=== PATIENT | male | born 1965 | race American Indian/Alaskan Native ===

== ENCOUNTER 2021-08-08 10:38 | Emergency (ER) | payer SELFPAY ==
[~2021-08-08 10:38] MED LIST: ETOMIDATE 20 MG/10 ML INJ IV ONE; ROCURONIUM 50 MG/5 ML INJ IV ONE
[2021-08-08] MEDS ORDERED: MINERAL OIL/PETROLATUM, WHITE OPHTH OINT 3.5 GM OU PRN (12:42)
[2021-08-08] MEDS ORDERED: MIDAZOLAM 2 MG/2 ML INJ IV PRN (12:42)
[2021-08-08] MEDS ORDERED: LIP THERAPY VASELINE TP PRN (12:42)
[2021-08-08] MEDS ORDERED: SODIUM CHLORIDE 0.9% 1000 ML 1,000 ML IV ONE ×3 (12:42→21:48)
--- NOTE | 2021-08-08 13:33 | Emergency Department Report ---
HPI - General Time Seen by Provider: 08/08/21 12:41 - HPI HPI: 56-year-old -[place] male presents to the emergency department via EMS from home with complaint of altered mental status. Initial call for EMS was a "sick call" and the patient was relatively unresponsive when they first arrived. Upon arrival to the emergency department the patient was more awake and alert, answering questions by nodding his head, had spontaneous eye opening, and EMS felt it was safe enough for the oral pharyngeal airway to be removed. Initially he was hypertensive in route. He has a known history of hypertension. The patient's told EMS that the patient had some type of fall over the weekend with a head injury and he was evaluated at [facility] on Saturday and discharged home from the emergency department. She told EMS that since that time he has been "like this." While waiting for a room assignment in the emergency department, the patient once again became unresponsive. He was moved into room #24. There was occasional spontaneous eye opening but this was rare. The patient would respond minimally to painful stimuli. Otherwise he was unresponsive with snoring respirations and his oxygen saturation was seen going down to 80% on room air. The patient was placed on a nonrebreather with some mild improvement. However, with a low GCS and his respiratory status, the patient was intubated. The patient has never been at this facility previously. I attempted to find the patient's in our waiting room without success. There is no phone number listed at this time for collateral information. I did later speak to the patient's multiple times at bedside. She said that he first had some vertigo-like symptoms and had an unresponsive episode last Saturday and that is what prompted them to go to the [facility] emergency department. She thinks that he did have a scan of his head at that time and had an emergency department work-up but was discharged home with some prescriptions including meclizine. She says that he never returned to a normal mental status saying that he has been "out of it" over the past 2 days. She say s that he has been sleeping a lot, and has had a few episodes in which he stares off and only answers questions with nodding his head. This morning it appears that the patient rolled out of bed and hit his head on the floor. He was unresponsive which is what prompted her to call for EMS. ED Review of Systems ROS: Stated complaint: AMS Other details as noted in HPI Comment: Unobtainable due to pts medical conditions Physical Exam - Physical Exam Vital Signs: Vital Signs 08/08/21 12:58 Pulse Rate 126 H Blood Pressure 203/128 O2 Sat by Pulse 90 Oximetry Physical Exam: GENERAL: The patient is ill-appearing and unresponsive. HENT: Normocephalic. Atraumatic. Patient has moist mucous membranes. EYES: Extraocular motions are intact. Pupils equal, constricted, and sluggish and reactive to light bilaterally. NECK: Supple. Trachea is midline. CHEST/LUNGS: Coarse breath sounds and rales. Patient has bradypnea with snoring respirations. HEART/CARDIOVASCULAR: Regular. There is mild to moderate tachycardia. There is no murmur. ABDOMEN: Abdomen is soft, nontender. Patient has normal bowel sounds. SKIN: Skin is warm and dry. NEURO: Patient is unresponsive other than very mild flexion to painful stimuli. No gag reflex. Nonverbal. Not following commands. MUSCULOSKELETAL: There is no obvious deformity. There is no limitation range of motion. ED Course Vital Signs 08/08/21 12:58 Pulse Rate 126 H Blood Pressure 203/128 O2 Sat by Pulse 90 Oximetry - Reevaluation(s) Reevaluation #1: 08/08/21 17:59 I had a long conversation with the patient's and his family regarding his current condition, lab results, and most significantly at the CT head results. They are aware the patient may need transfer to another facility but that there are no excepting facilities in [place] thus far, and even in [place]. I later spoke with the patient's and discussed my desire to obtain a CT angiography of the head and neck to further evaluate if there is thrombosis versus mass versus other. She understands that he has renal insufficiency with a GFR of 25 but has given her permission to proceed with the CT angiography studies after risks/benefits were discussed. - Consultations Consultation #1: 08/08/21 16:[address] Galvan, stroke attending at [facility], and he took a look at the patient's CT of the head without contrast after listening to his presentation and ED course. He agrees that the patient appears to require neurosurgical consultation but says that the patient is currently outside of the window for tPA or thrombectomy. He says that they are full for neuro ICU at both [facility] and [facility]. 08/08/21 16:35 All [facility] facilities are full. [facility] is in ICU diversion. [facility] in [place] is on medical diversion. 08/08/21 17:12 Attempted transfer to [facility], [facility], [facility], [facility] in [place], and all these facilities are full and not accepting transfers at this time. 08/08/21 17:58 [facility] and [facility] are both on ICU diversion and cannot accept this patient at this time. 08/08/21 21:17 Spoke with the [facility] transfer line and as of right now [facility] in [place], [facility] in [place] do not have any ICU capability but we should "try again later." The other local [facility] facilities are on diversion. - Intubation Time Out Performed: Yes Sedative: Etomidate Mg Given: 20 Paralytic: Rocuronium Mg Given: 100 Laryngoscope: other ([place] scope) Size: 4 ET Tube Size: 7.5 Tube Secured Depth (cm): 24 Tube Secured Location: teeth Tube Placement Confirmation: visualized tube passing t, equal breath sounds bilat, no breath sounds over epi, confirmation by capnometr Patient Tolerated Procedure: well Intubation Complications: none ED Medical Decision Making - Lab Data Result diagrams: 08/08/21 13:16 08/08/21 13:16 Lab Results 08/08/21 08/08/21 08/08/21 Range/Units 13:16 13:16 13:16 WBC 11.7 H (4.5-11.0) K/mm3 RBC 6.97 H (3.65-5.03) M/mm3 Hgb 18.9 H (11.8-15.2) gm/dl Hct 58.9 H (35.5-45.6) % MCV 85 (84-94) fl MCH 27 L (28-32) pg MCHC 32 (32-34) % RDW 14.7 (13.2-15.2) % Plt Count 268 (140-440) K/mm3 Lymph % (Auto) 12.6 L (13.4-35.0) % Gibson % (Auto) 10.3 H (0.0-7.3) % Eos % (Auto) 0.0 (0.0-4.3) % Baso % (Auto) 0.1 (0.0-1.8) % Lymph # (Auto) 1.5 (1.2-5.4) K/mm3 Gibson # (Auto) 1.2 H (0.0-0.8) K/mm3 Eos # (Auto) 0.0 (0.0-0.4) K/mm3 Baso # (Auto) 0.0 (0.0-0.1) K/mm3 Seg Neutrophils % 77.0 H (40.0-70.0) % Seg Neutrophils # 9.0 H (1.8-7.7) K/mm3 PT 13.5 (12.2-14.9) Sec. INR 0.93 (0.87-1.13) APTT 27.7 (24.2-36.6) Sec. ABG pH (7.350-7.450) pH Units ABG pCO2 mm Hg ABG pO2 (80.0-90.0) mm Hg ABG HCO3 (20.0-26.0) mmol/L ABG O2 Saturation (95.0-99.0) % ABG O2 Content (0.0-44) ABG Base Excess (-2.0-3.0) mmol/L ABG Hemoglobin (14.0-18.0) gm/dl ABG Carboxyhemoglobin (0.0-5.0) % ABG Methemoglobin (0.0-1.5) % Oxyhemoglobin (95.0-99.0) % FiO2 % Sodium 142 (137-145) mmol/L Potassium 2.6 L* (3.6-5.0) mmol/L Chloride 93.2 L (98-107) mmol/L Carbon Dioxide 30 (22-30) mmol/L Anion Gap 21 mmol/L BUN 36 H (9-20) mg/dL Creatinine 2.7 H (0.8-1.3) mg/dL Estimated GFR 25 ml/min BUN/Creatinine Ratio 13 % Glucose 129 H (75-100) mg/dL Lactic Acid (0.7-2.0) mmol/L Calcium 10.2 (8.4-10.2) mg/dL Magnesium (1.7-2.3) mg/dL Total Bilirubin 0.90 (0.1-1.2) mg/dL AST 27 (5-40) units/L ALT 27 (7-56) units/L Alkaline Phosphatase 108 (35-129) units/L Ammonia (25-60) umol/L Troponin T 0.019 (0.00-0.029) ng/mL NT-Pro-B Natriuret Pep (0-900) pg/mL Total Protein 9.4 H (6.3-8.2) g/dL Albumin 4.5 (3.9-5) g/dL Albumin/Globulin Ratio 0.9 % TSH (0.270-4.200) mlU/mL Urine Color (Yellow) Urine Turbidity (Clear) Urine pH (5.0-7.0) Ur Specific [place] (1.003-1.030) Urine Protein (Negative) mg/dL Urine Glucose (UA) (Negative) mg/dL Urine Ketones (Negative) mg/dL Urine Blood (Negative) Urine Nitrite (Negative) Urine Bilirubin (Negative) Urine Urobilinogen (<2.0) mg/dL Ur Leukocyte Esterase (Negative) Urine WBC (Auto) (0.0-6.0) /HPF Urine RBC (Auto) (0.0-6.0) /HPF Urine Mucus /HPF Salicylates (2.8-20.0) mg/dL Urine Opiates Screen Urine Methadone Screen Acetaminophen (10.0-30.0) ug/mL Ur Barbiturates Screen Ur Phencyclidine Scrn Ur Amphetamines Screen U Benzodiazepines Scrn Urine Cocaine Screen U Marijuana (THC) Screen Drugs of Abuse Note Plasma/Serum Alcohol (0-0.07) % 08/08/21 08/08/21 08/08/21 Range/Units 13:16 13:16 13:16 WBC (4.5-11.0) K/mm3 RBC (3.65-5.03) M/mm3 Hgb (11.8-15.2) gm/dl Hct (35.5-45.6) % MCV (84-94) fl MCH (28-32) pg MCHC (32-34) % RDW (13.2-15.2) % Plt Count (140-440) K/mm3 Lymph % (Auto) (13.4-35.0) % Gibson % (Auto) (0.0-7.3) % Eos % (Auto) (0.0-4.3) % Baso % (Auto) (0.0-1.8) % Lymph # (Auto) (1.2-5.4) K/mm3 Gibson # (Auto) (0.0-0.8) K/mm3 Eos # (Auto) (0.0-0.4) K/mm3 Baso # (Auto) (0.0-0.1) K/mm3 Seg Neutrophils % (40.0-70.0) % Seg Neutrophils # (1.8-7.7) K/mm3 PT (12.2-14.9) Sec. INR (0.87-1.13) APTT (24.2-36.6) Sec. ABG pH (7.350-7.450) pH Units ABG pCO2 mm Hg ABG pO2 (80.0-90.0) mm Hg ABG HCO3 (20.0-26.0) mmol/L ABG O2 Saturation (95.0-99.0) % ABG O2 Content (0.0-44) ABG Base Excess (-2.0-3.0) mmol/L ABG Hemoglobin (14.0-18.0) gm/dl ABG Carboxyhemoglobin (0.0-5.0) % ABG Methemoglobin (0.0-1.5) % Oxyhemoglobin (95.0-99.0) % FiO2 % Sodium (137-145) mmol/L Potassium (3.6-5.0) mmol/L Chloride (98-107) mmol/L Carbon Dioxide (22-30) mmol/L Anion Gap mmol/L BUN (9-20) mg/dL Creatinine (0.8-1.3) mg/dL Estimated GFR ml/min BUN/Creatinine Ratio % Glucose (75-100) mg/dL Lactic Acid 3.30 H* (0.7-2.0) mmol/L Calcium (8.4-10.2) mg/dL Magnesium (1.7-2.3) mg/dL Total Bilirubin (0.1-1.2) mg/dL AST (5-40) units/L ALT (7-56) units/L Alkaline Phosphatase (35-129) units/L Ammonia 24.0 L (25-60) umol/L Troponin T (0.00-0.029) ng/mL NT-Pro-B Natriuret Pep (0-900) pg/mL Total Protein (6.3-8.2) g/dL Albumin (3.9-5) g/dL Albumin/Globulin Ratio % TSH 1.750 (0.270-4.200) mlU/mL Urine Color (Yellow) Urine Turbidity (Clear) Urine pH (5.0-7.0) Ur Specific [place] (1.003-1.030) Urine Protein (Negative) mg/dL Urine Glucose (UA) (Negative) mg/dL Urine Ketones (Negative) mg/dL Urine Blood (Negative) Urine Nitrite (Negative) Urine Bilirubin (Negative) Urine Urobilinogen (<2.0) mg/dL Ur Leukocyte Esterase (Negative) Urine WBC (Auto) (0.0-6.0) /HPF Urine RBC (Auto) (0.0-6.0) /HPF Urine Mucus /HPF Salicylates (2.8-20.0) mg/dL Urine Opiates Screen Urine Methadone Screen Acetaminophen (10.0-30.0) ug/mL Ur Barbiturates Screen Ur Phencyclidine Scrn Ur Amphetamines Screen U Benzodiazepines Scrn Urine Cocaine Screen U Marijuana (THC) Screen Drugs of Abuse Note Plasma/Serum Alcohol (0-0.07) % 08/08/21 08/08/21 08/08/21 Range/Units 13:16 13:16 13:16 WBC (4.5-11.0) K/mm3 RBC (3.65-5.03) M/mm3 Hgb (11.8-15.2) gm/dl Hct (35.5-45.6) % MCV (84-94) fl MCH (28-32) pg MCHC (32-34) % RDW (13.2-15.2) % Plt Count (140-440) K/mm3 Lymph % (Auto) (13.4-35.0) % Gibson % (Auto) (0.0-7.3) % Eos % (Auto) (0.0-4.3) % Baso % (Auto) (0.0-1.8) % Lymph # (Auto) (1.2-5.4) K/mm3 Gibson # (Auto) (0.0-0.8) K/mm3 Eos # (Auto) (0.0-0.4) K/mm3 Baso # (Auto) (0.0-0.1) K/mm3 Seg Neutrophils % (40.0-70.0) % Seg Neutrophils # (1.8-7.7) K/mm3 PT (12.2-14.9) Sec. INR (0.87-1.13) APTT (24.2-36.6) Sec. ABG pH (7.350-7.450) pH Units ABG pCO2 mm Hg ABG pO2 (80.0-90.0) mm Hg ABG HCO3 (20.0-26.0) mmol/L ABG O2 Saturation (95.0-99.0) % ABG O2 Content (0.0-44) ABG Base Excess (-2.0-3.0) mmol/L ABG Hemoglobin (14.0-18.0) gm/dl ABG Carboxyhemoglobin (0.0-5.0) % ABG Methemoglobin (0.0-1.5) % Oxyhemoglobin (95.0-99.0) % FiO2 % Sodium (137-145) mmol/L Potassium (3.6-5.0) mmol/L Chloride (98-107) mmol/L Carbon Dioxide (22-30) mmol/L Anion Gap mmol/L BUN (9-20) mg/dL Creatinine (0.8-1.3) mg/dL Estimated GFR ml/min BUN/Creatinine Ratio % Glucose (75-100) mg/dL Lactic Acid (0.7-2.0) mmol/L Calcium (8.4-10.2) mg/dL Magnesium (1.7-2.3) mg/dL Total Bilirubin (0.1-1.2) mg/dL AST (5-40) units/L ALT (7-56) units/L Alkaline Phosphatase (35-129) units/L Ammonia (25-60) umol/L Troponin T (0.00-0.029) ng/mL NT-Pro-B Natriuret Pep (0-900) pg/mL Total Protein (6.3-8.2) g/dL Albumin (3.9-5) g/dL Albumin/Globulin Ratio % TSH (0.270-4.200) mlU/mL Urine Color (Yellow) Urine Turbidity (Clear) Urine pH (5.0-7.0) Ur Specific [place] (1.003-1.030) Urine Protein (Negative) mg/dL Urine Glucose (UA) (Negative) mg/dL Urine Ketones (Negative) mg/dL Urine Blood (Negative) Urine Nitrite (Negative) Urine Bilirubin (Negative) Urine Urobilinogen (<2.0) mg/dL Ur Leukocyte Esterase (Negative) Urine WBC (Auto) (0.0-6.0) /HPF Urine RBC (Auto) (0.0-6.0) /HPF Urine Mucus /HPF Salicylates < 0.3 L (2.8-20.0) mg/dL Urine Opiates Screen Urine Methadone Screen Acetaminophen 5.0 L (10.0-30.0) ug/mL Ur Barbiturates Screen Ur Phencyclidine Scrn Ur Amphetamines Screen U Benzodiazepines Scrn Urine Cocaine Screen U Marijuana (THC) Screen Drugs of Abuse Note Plasma/Serum Alcohol < 0.01 (0-0.07) % 08/08/21 08/08/21 08/08/21 Range/Units 13:35 13:36 13:36 WBC (4.5-11.0) K/mm3 RBC (3.65-5.03) M/mm3 Hgb (11.8-15.2) gm/dl Hct (35.5-45.6) % MCV (84-94) fl MCH (28-32) pg MCHC (32-34) % RDW (13.2-15.2) % Plt Count (140-440) K/mm3 Lymph % (Auto) (13.4-35.0) % Gibson % (Auto) (0.0-7.3) % Eos % (Auto) (0.0-4.3) % Baso % (Auto) (0.0-1.8) % Lymph # (Auto) (1.2-5.4) K/mm3 Gibson # (Auto) (0.0-0.8) K/mm3 Eos # (Auto) (0.0-0.4) K/mm3 Baso # (Auto) (0.0-0.1) K/mm3 Seg Neutrophils % (40.0-70.0) % Seg Neutrophils # (1.8-7.7) K/mm3 PT (12.2-14.9) Sec. INR (0.87-1.13) APTT (24.2-36.6) Sec. ABG pH 7.396 (7.350-7.450) pH Units ABG pCO2 56.7 mm Hg ABG pO2 93.7 H (80.0-90.0) mm Hg ABG HCO3 34.0 H (20.0-26.0) mmol/L ABG O2 Saturation 96.9 (95.0-99.0) % ABG O2 Content 23.8 (0.0-44) ABG Base Excess 6.8 H (-2.0-3.0) mmol/L ABG Hemoglobin 17.8 (14.0-18.0) gm/dl ABG Carboxyhemoglobin 1.3 (0.0-5.0) % ABG Methemoglobin 0.6 (0.0-1.5) % Oxyhemoglobin 95.0 (95.0-99.0) % FiO2 100 % Sodium (137-145) mmol/L Potassium (3.6-5.0) mmol/L Chloride (98-107) mmol/L Carbon Dioxide (22-30) mmol/L Anion Gap mmol/L BUN (9-20) mg/dL Creatinine (0.8-1.3) mg/dL Estimated GFR ml/min BUN/Creatinine Ratio % Glucose (75-100) mg/dL Lactic Acid (0.7-2.0) mmol/L Calcium (8.4-10.2) mg/dL Magnesium 2.40 H (1.7-2.3) mg/dL Total Bilirubin (0.1-1.2) mg/dL AST (5-40) units/L ALT (7-56) units/L Alkaline Phosphatase (35-129) units/L Ammonia (25-60) umol/L Troponin T (0.00-0.029) ng/mL NT-Pro-B Natriuret Pep 619.3 (0-900) pg/mL Total Protein (6.3-8.2) g/dL Albumin (3.9-5) g/dL Albumin/Globulin Ratio % TSH (0.270-4.200) mlU/mL Urine Color (Yellow) Urine Turbidity (Clear) Urine pH (5.0-7.0) Ur Specific [place] (1.003-1.030) Urine Protein (Negative) mg/dL Urine Glucose (UA) (Negative) mg/dL Urine Ketones (Negative) mg/dL Urine Blood (Negative) Urine Nitrite (Negative) Urine Bilirubin (Negative) Urine Urobilinogen (<2.0) mg/dL Ur Leukocyte Esterase (Negative) Urine WBC (Auto) (0.0-6.0) /HPF Urine RBC (Auto) (0.0-6.0) /HPF Urine Mucus /HPF Salicylates (2.8-20.0) mg/dL Urine Opiates Screen Urine Methadone Screen Acetaminophen (10.0-30.0) ug/mL Ur Barbiturates Screen Ur Phencyclidine Scrn Ur Amphetamines Screen U Benzodiazepines Scrn Urine Cocaine Screen U Marijuana (THC) Screen Drugs of Abuse Note Plasma/Serum Alcohol (0-0.07) % 08/08/21 08/08/21 Range/Units Unknown Unknown WBC (4.5-11.0) K/mm3 RBC (3.65-5.03) M/mm3 Hgb (11.8-15.2) gm/dl Hct (35.5-45.6) % MCV (84-94) fl MCH (28-32) pg MCHC (32-34) % RDW (13.2-15.2) % Plt Count (140-440) K/mm3 Lymph % (Auto) (13.4-35.0) % Gibson % (Auto) (0.0-7.3) % Eos % (Auto) (0.0-4.3) % Baso % (Auto) (0.0-1.8) % Lymph # (Auto) (1.2-5.4) K/mm3 Gibson # (Auto) (0.0-0.8) K/mm3 Eos # (Auto) (0.0-0.4) K/mm3 Baso # (Auto) (0.0-0.1) K/mm3 Seg Neutrophils % (40.0-70.0) % Seg Neutrophils # (1.8-7.7) K/mm3 PT (12.2-14.9) Sec. INR (0.87-1.13) APTT (24.2-36.6) Sec. ABG pH (7.350-7.450) pH Units ABG pCO2 mm Hg ABG pO2 (80.0-90.0) mm Hg ABG HCO3 (20.0-26.0) mmol/L ABG O2 Saturation (95.0-99.0) % ABG O2 Content (0.0-44) ABG Base Excess (-2.0-3.0) mmol/L ABG Hemoglobin (14.0-18.0) gm/dl ABG Carboxyhemoglobin (0.0-5.0) % ABG Methemoglobin (0.0-1.5) % Oxyhemoglobin (95.0-99.0) % FiO2 % Sodium (137-145) mmol/L Potassium (3.6-5.0) mmol/L Chloride (98-107) mmol/L Carbon Dioxide (22-30) mmol/L Anion Gap mmol/L BUN (9-20) mg/dL Creatinine (0.8-1.3) mg/dL Estimated GFR ml/min BUN/Creatinine Ratio % Glucose (75-100) mg/dL Lactic Acid (0.7-2.0) mmol/L Calcium (8.4-10.2) mg/dL Magnesium (1.7-2.3) mg/dL Total Bilirubin (0.1-1.2) mg/dL AST (5-40) units/L ALT (7-56) units/L Alkaline Phosphatase (35-129) units/L Ammonia (25-60) umol/L Troponin T (0.00-0.029) ng/mL NT-Pro-B Natriuret Pep (0-900) pg/mL Total Protein (6.3-8.2) g/dL Albumin (3.9-5) g/dL Albumin/Globulin Ratio % TSH (0.270-4.200) mlU/mL Urine Color Yellow (Yellow) Urine Turbidity Slightly-cloudy (Clear) Urine pH 5.0 (5.0-7.0) Ur Specific [place] 1.023 (1.003-1.030) Urine Protein >500 (Negative) mg/dL Urine Glucose (UA) Neg (Negative) mg/dL Urine Ketones Neg (Negative) mg/dL Urine Blood Mod (Negative) Urine Nitrite Neg (Negative) Urine Bilirubin Neg (Negative) Urine Urobilinogen < 2.0 (<2.0) mg/dL Ur Leukocyte Esterase Neg (Negative) Urine WBC (Auto) 10.0 H (0.0-6.0) /HPF Urine RBC (Auto) < 1.0 (0.0-6.0) /HPF Urine Mucus Few /HPF Salicylates (2.8-20.0) mg/dL Urine Opiates Screen Negative Urine Methadone Screen Negative Acetaminophen (10.0-30.0) ug/mL Ur Barbiturates Screen Negative Ur Phencyclidine Scrn Negative Ur Amphetamines Screen Negative U Benzodiazepines Scrn Negative Urine Cocaine Screen Negative U Marijuana (THC) Screen Negative Drugs of Abuse Note Disclamer Plasma/Serum Alcohol (0-0.07) % - EKG Data -: EKG Interpreted by Il EKG shows normal: sinus rhythm, axis, intervals, QRS complexes (Q waves to the anterior septal leads), ST-T waves Rate: tachycardia (135 bpm) - EKG Data When compared to previous EKG there are: previous EKG unavailable Interpretation: other (Sinus tachycardia 135 bpm, normal axis, normal intervals, Q waves to the anteroseptal leads. No ST elevation ND) - Radiology Data Radiology results: report reviewed CT HEAD WITHOUT CONTRAST INDICATION : Altered mental status. TECHNIQUE: Axial imaging performed from the skull apex through the skull base without the use of contrast. Sagittal and coronal reformatted images. All CT scans at this location are performed using CT dose reduction for ALARA by means of automated exposure control. COMPARISON: None FINDINGS: Parenchyma: There appears to be large areas of diminished attenuation/edema in the posterior fossa involving the brainstem and cerebellar hemispheres. The fourth ventricle is effaced. I question if there is mild hyperdensity of the vertebral arteries and basilar artery. Basilar artery thrombosis with large areas of ischemia in the posterior fossa should be considered. The supratentorial compartment demonstrates mild volume loss and chronic white matter changes. No convincing areas of ischemia in the supratentorial compartment. There is no evidence for hemorrhage or extra- axial fluid collection. Ventricles: The fourth ventricle is effaced from edema in the posterior fossa. There is minimal dilatation of the lateral ventricles. Bones: No acute osseous abnormality. Sinuses: Sinuses and mastoid air cells are clear. Soft tissues: Soft tissues including the orbits appear normal. IMPRESSION: Large areas of edema or ischemia are suspected in the posterior fossa as described. The basilar artery and vertebral arteries appear slightly hyperdense. Vertebrobasilar insufficiency or thrombosis should be considered. The fourth ventricle is effaced due to mass effect. Underlying mass in the posterior fossa is thought less likely but cannot be entirely excluded. Consider further evaluation with MRI with and without contras CTA HEAD WITH CONTRAST 08/08/2021 HISTORY: CVA. COMPARISON: None. TECHNIQUE: All CT scans at this location are performed using CT dose reduction for ALARA by means of automated exposure control.. 3-D/MIP reformats postprocessed. Percentage stenosis is determined by direct quantitative measurements of diseased internal carotid artery diameter compared with normal distal internal carotid artery reference segments or by criteria similar to NASCET where applicable. CONTRAST: 100 ml of Omnipaque 350 FINDINGS: There is a prominent area of absent vascular enhancement in the left inferior cerebellar hemisphere, which suggests ongoing or developing cerebellar ischemia/infarct. CTA HEAD: Intracranial vertebral arteries: There is some atherosclerotic irregularity associated with the distal left vertebral artery, which is narrowed near the vertebrobasilar junction. There is possible truncation of the left posterior inferior cerebellar artery,. Basilar artery: Mild atherosclerotic irregularity. Posterior cerebral arteries: No significant abnormality. Intracranial internal carotid arteries: No significant abnormality. Anterior cerebral arteries: No significant abnormality. Middle cerebral arteries: No significant abnormality. Dural venous sinuses:Not optimally opacified. No significant abnormality. Additional findings: None. IMPRESSION: 1. 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 CTA NECK WITH CONTRAST 08/08/2021 INDICATION / CLINICAL INFORMATION: CVA. COMPARISON: None. TECHNIQUE: Routine CTA of the neck is performed. 3-D/MIP reformats were postprocessed. Percentage stenosis is determined by direct q uantitative measurements of diseased internal carotid artery diameter compared with normal distal internal carotid artery reference segments or by criteria similar to NASCET where applicable. All CT scans at this location are performed using CT dose reduction for ALARA by means of automated exposure control. CONTRAST: 100 ml of Omnipaque 350 FINDINGS: There is extensive soft tissue emphysema in the soft tissues of the neck, more prominently on the left. This extends downward into the 80s time, there where there is prominent mediastinal emphysema. Note is made of a left pneumothorax. Prominent pulmonary opacifications are present bilaterally, right greater than left. Only the upper lung morrell are included on this study. Carotid bifurcations: No definite evidence of carotid bifurcation stenosis. Image quality is diminished due to the presence of air density surrounding the vascular structures in the neck. Carotid arteries: No significant abnormality. Cervical vertebral arteries: No significant abnormality. Aortic arch: No significant abnormality. None. IMPRESSION: 1. No definite evidence of vascular abnormality. 2. Extensive soft tissue emphysema in the neck, mediastinum. 3. Left pneumothorax. 4. Prominent bilateral pulmonary opacities. CHEST 1 VIEW 08/08/2021 12:37 PM INDICATION / CLINICAL INFORMATION: ETT placement. COMPARISON: None available. FINDINGS: SUPPORT DEVICES: ET tube is 1.9 cm above the stephanie HEART / MEDIASTINUM: No significant abnormality. LUNGS / PLEURA: Diffuse opacity throughout the right lung with low lung volumes No pneumothorax. CHEST 1 VIEW 08/08/2021 7:34 PM INDICATION / CLINICAL INFORMATION: SOB. COMPARISON: 08/09/2021 FINDINGS: SUPPORT DEVICES: Stable, satisfactory device positioning. HEART / MEDIASTINUM: No significant abnormality. LUNGS / PLEURA: Diffuse opacities in bilateral lungs right greater than left. No pneumothorax. ADDITIONAL FINDINGS: No significant additional findings. IMPRESSION: 1. Diffuse bilateral pulmonary opacities. Slight improvement in the right lung. - Medical Decision Making Initially when the patient arrived by EMS they said that he was showing some improvement of his mentation and the fact that he was answering some questions by nodding his head and no longer needed the oropharyngeal airway. However, shortly afterwards the patient once again became unresponsive. He was brought into room #24 where he was seen to have oxygen saturation of about 80% on room air. He was placed on a nonrebreather without much improvement. On examination he had constricted pupils with sluggish response to light but equal bilaterally. He had some mild flexion to painful stimuli. He was occasionally seen opening his eyes spontaneously but otherwise was not following any commands. Both myself and respiratory therapy were at bedside and the patient was found to not have a gag reflex. For all these reasons he was intubated as per the procedure section. Chest x-ray showed some right-sided lung opacities but otherwise no acute process and endotracheal tube was about 2 cm above the stephanie. Patient's labs shows acute kidney injury with a GFR of 25, lactic acidosis, and hyperkalemia with a potassium level of 2.6. Patient has been given IV fluid resuscitation, IV potassium chloride, IV antibiotics. Patient had a CT scan of the head without contrast that shows concern for vertebral basilar artery thrombosis or occlusion. There is also effacement of the fourth ventricle from mass-effect with concern for possible posterior mass, although less likely than the arterial occlusion. I spoke to neurosurgery who stated that the patient needs transfer to another facility. As per the consultation section, I have attempted multiple hospitals without any success as there are no ICU beds available. I spoke to the patient's and we discussed the risk versus benefits of getting CT angiography studies of the head and neck with the patient's acute kidney injury. She did agree with the plan for CT angiography studies and these were completed. CT angiography of the head shows posterior inferior cerebellar artery occlusion and evolving infarction. CT angiography of the neck showed subcutaneous emphysema and there was concern for a left apical pneumothorax. A repeat chest x-ray was done that did not show any evidence of pneumothorax but now shows bilateral opacities concerning for pneumonia. I once again spoke to the neurosurgeon on-call, Dr. Gonsalves, who was trying to assist with the transfer to one of the local hospitals in which he has privileges but there are no ICU beds available and he was unable to facilitate transfer this evening. He has recommended that the patient be admitted to the ICU. He will be consulted and may attempt transfer again starting in the a.m. He has asked for the patient to receive mannitol and medical management of intracranial pressure. Patient has been accepted for admission by the hospitalist, Dr. Manuel. Critical Care Time: Yes Critical care time in (mins) excluding proc time.: 100 Critical care attestation.: If time is entered above; I have spent that time in minutes in the direct care of this critically ill patient, excluding procedure time. Critical care time has been spent on this patient during his initial evaluation, multiple reevaluations, ordering and interpretation of labs and imaging, ventilatory management, multiple discussions with the patient's , multiple discussions with facilities for possible transfer, discussion with the telemetry neurologist and neurosurgery services. This does not include the time spent doing the intubation. Critical Care Time: 100 minutes ED Disposition Clinical Impression: TRICIA (acute kidney injury), Hypokalemia CVA (cerebral vascular accident) Qualifiers: CVA mechanism: occlusion Precerebral and cerebral artery: cerebellar artery Laterality of affected vessel: unspecified Qualified Code(s): I63.549 - Cerebral infarction due to unspecified occlusion or stenosis of unspecified cerebellar artery Pneumonia Qualifiers: Pneumonia type: due to unspecified organism Laterality: bilateral Acute respiratory failure Qualifiers: Respiratory failure complication: hypoxia Qualified Code(s): J96.01 - Acute respiratory failure with hypoxia Disposition: 09 ADMITTED INPATIENT Is pt being admited?: Yes Condition: Critical Instructions: Bacterial Pneumonia (ED) Time of Disposition: 23:29
--- NOTE | 2021-08-08 13:47 | XRay Report ---
CHEST 1 VIEW 08/08/2021 12:37 PM INDICATION / CLINICAL INFORMATION: ETT placement. COMPARISON: None available. FINDINGS: SUPPORT DEVICES: ET tube is 1.9 cm above the stephanie HEART / MEDIASTINUM: No significant abnormality. LUNGS / PLEURA: Diffuse opacity throughout the right lung with low lung volumes No pneumothorax. Signer Name: Hermes Chung MD Signed: 08/08/2021 1:43 PM Workstation Name: [employer]
[2021-08-08 13:49] LABS: ABG Base Excess 6.8 mmol/L (-2.0-3.0); ABG Methemoglobin 0.6 % (0.0-1.5); ABG Oxygen Saturation 96.9 % (95.0-99.0); ABG PCO2 56.7 mm Hg; ABG PH 7.396 pH Units (7.350-7.450); ABG PO2 93.7 mm Hg (80.0-90.0)
[2021-08-08 13:50] LABS: Bilirubin,Urine NEG (Negative); Blood,Urine MOD (Negative); Color,Urine Yellow (Yellow); Mucus,Urine FEW /HPF; RBC,Urine < 1.0 /HPF (0.0-6.0); Urobilinogen,Urine < 2.0 mg/dL (<2.0)
[2021-08-08 13:52] LABS: Basophils % (Auto) 0.1 % (0.0-1.8); Hematocrit 58.9 % (35.5-45.6); Hemoglobin 18.9 gm/dl (11.8-15.2); Lymphocytes # (Auto) 1.5 K/mm3 (1.2-5.4); Lymphocytes % (Auto) 12.6 % (13.4-35.0); Mean Corpuscular HGB Conc 32 % (32-34); Mean Corpuscular Volume 85 fl (84-94); Monocytes # (Auto) 1.2 K/mm3 (0.0-0.8); Monocytes % (Auto) 10.3 % (0.0-7.3); Platelet Count 268 K/mm3 (140-440); Red Blood Count 6.97 M/mm3 (3.65-5.03); Red Cell Distribution Width 14.7 % (13.2-15.2)
[2021-08-08 13:53] LABS: Protein,Urine >500 mg/dL (Negative)
[2021-08-08 13:55] LABS: Amphetamine Screen,Urine Negative; Benzodiazepines Screen,Urine Negative; Cannabinoid Screen,Urine Negative; Cocaine Screen,Urine Negative; Methadone Screen,Urine Negative; Opiate Screen,Urine Negative
[2021-08-08 14:05] LABS: INR 0.93 (0.87-1.13); Partial Thromboplastin Time 27.7 Sec. (24.2-36.6)
[2021-08-08 14:06] LABS: Albumin 4.5 g/dL (3.9-5); Calcium 10.2 mg/dL (8.4-10.2)
[2021-08-08] MEDS: POTASSIUM CHLORIDE 10 MEQ 10 MEQ/100 ML BAG IV SCH ×4 (15:05→19:45)
--- NOTE | 2021-08-08 15:27 | Cat Scan Report ---
CT HEAD WITHOUT CONTRAST INDICATION : Altered mental status. TECHNIQUE: Axial imaging performed from the skull apex through the skull base without the use of con trast. Sagittal and coronal reformatted images. All CT scans at this location are performed using C T dose reduction for ALARA by means of automated exposure control. COMPARISON: None FINDINGS: Parenchyma: There appears to be large areas of diminished attenuation/edema in the posterior fossa i nvolving the brainstem and cerebellar hemispheres. The fourth ventricle is effaced. I question if the re is mild hyperdensity of the vertebral arteries and basilar artery. Basilar artery thrombosis with large areas of ischemia in the posterior fossa should be considered. The supratentorial compartment d emonstrates mild volume loss and chronic white matter changes. No convincing areas of ischemia in the supratentorial compartment. There is no evidence for hemorrhage or extra-axial fluid collection. Ventricles: The fourth ventricle is effaced from edema in the posterior fossa. There is minimal dila tation of the lateral ventricles. Bones: No acute osseous abnormality. Sinuses: Sinuses and mastoid air cells are clear. Soft tissues: Soft tissues including the orbits appear normal. IMPRESSION: Large areas of edema or ischemia are suspected in the posterior fossa as described. The b asilar artery and vertebral arteries appear slightly hyperdense. Vertebrobasilar insufficiency or thr ombosis should be considered. The fourth ventricle is effaced due to mass effect. Underlying mass in the posterior fossa is thought less likely but cannot be entirely excluded. Consider further evaluati on with MRI with and without contrast. CRITICAL RESULT: Time of Discovery (SOFTWARE QUALITY TEST ENGINEER/CDT): 1420 Time of Communication (SOFTWARE QUALITY TEST ENGINEER/CDT): 1423 hours Licensed Practitioner Receiving Report: Dr. Reyes Read-Back Performed: Yes. Signer Name: Juan Diego Fernandes Jr, MD Signed: 08/08/2021 3:23 PM Workstation Name: [id number]
[2021-08-08] MEDS: MIDAZOLAM 100 MG in SODIUM CHLORIDE 0.9% 80 ML IV SCH (17:28)
[2021-08-08] MEDS ORDERED: SODIUM CHLORIDE 0.9% 500 ML 500 ML IV ONE (17:47)
--- NOTE | 2021-08-08 19:40 | Cat Scan Report ---
CTA HEAD WITH CONTRAST 08/08/2021 HISTORY: CVA. COMPARISON: None. TECHNIQUE: All CT scans at this location are performed using CT dose reduction for ALARA by means of automated exposure control.. 3-D/MIP reformats postprocessed. Percentage stenosis is determined by d irect quantitative measurements of diseased internal carotid artery diameter compared with normal dis refugio internal carotid artery reference segments or by criteria similar to NASCET where applicable. CONTRAST: 100 ml of Omnipaque 350 FINDINGS: There is a prominent area of absent vascular enhancement in the left inferior cerebellar hemisphere, which suggests ongoing or developing cerebellar ischemia/infarct. CTA HEAD: Intracranial vertebral arteries: There is some atherosclerotic irregularity associated with the dista l left vertebral artery, which is narrowed near the vertebrobasilar junction. There is possible trunc ation of the left posterior inferior cerebellar artery,. Basilar artery: Mild atherosclerotic irregularity. Posterior cerebral arteries: No significant abnormality. Intracranial internal carotid arteries: No significant abnormality. Anterior cerebral arteries: No significant abnormality. Middle cerebral arteries: No significant abnormality. Dural venous sinuses:Not optimally opacified. No significant abnormality. Additional findings: None. IMPRESSION: 1. 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 Signer Name: Augustin Interiano MD Signed: 08/08/2021 7:36 PM Workstation Name: [id number]
--- NOTE | 2021-08-08 19:47 | Cat Scan Report ---
CTA NECK WITH CONTRAST 08/08/2021 INDICATION / CLINICAL INFORMATION: CVA. COMPARISON: None. TECHNIQUE: Routine CTA of the neck is performed. 3-D/MIP reformats were postprocessed. Percentage st enosis is determined by direct quantitative measurements of diseased internal carotid artery diameter compared with normal distal internal carotid artery reference segments or by criteria similar to LASHAY CET where applicable. All CT scans at this location are performed using CT dose reduction for ALARA b y means of automated exposure control. CONTRAST: 100 ml of Omnipaque 350 FINDINGS: There is extensive soft tissue emphysema in the soft tissues of the neck, more prominently on the lef t. This extends downward into the 80s time, there where there is prominent mediastinal emphysema. Not e is made of a left pneumothorax. Prominent pulmonary opacifications are present bilaterally, right g reater than left. Only the upper lung morrell are included on this study. Carotid bifurcations: No definite evidence of carotid bifurcation stenosis. Image quality is diminish ed due to the presence of air density surrounding the vascular structures in the neck. Carotid arteries: No significant abnormality. Cervical vertebral arteries: No significant abnormality. Aortic arch: No significant abnormality. None. IMPRESSION: 1. No definite evidence of vascular abnormality. 2. Extensive soft tissue emphysema in the neck, mediastinum. 3. Left pneumothorax. 4. Prominent bilateral pulmonary opacities. Positive critical result: Time of discovery: 1935 hours ET Notification: Dr. Reyes In the emergency department at 1940 hours ET Signer Name: Augustin Interiano MD Signed: 08/08/2021 7:43 PM Workstation Name: [id number]
--- NOTE | 2021-08-08 20:04 | Emergency Department Report ---
Blank Doc - Documentation Documentation: [facility] Consult Note # Demographics Consult Type: General Neurology Patient Location: Emergency Room First Name: Hector Last Name: Tisha Date of : 1965 Age: 56 Gender: Male Facility: [facility] Time of Initial Page (Eastern Time): 08/08/2021, 19:56 Time of Return Call (Eastern Time): 08/08/2021, 19:56 Phone Only Consult: 56yo M presents after having an episode of change in mental status on Saturday. had a CT and was discharged home. he was still not back to his baseline, but better. today was found down again with worsened mental status. he had declined to an NIH of 4. was ultimately intubated. CT head showing posterior circulation strokes with effacement of the 4th ventricle. attempted transfer to all facilities in [place] and cannot find a facility that can accept him. CTA showed PICA occlusion, but no other occlusions (basilar artery is open). discussed that emergent transfer is needed for neurosurgical intervention to have a suboccipital crani for life saving treatment of his herniation from the stroke. He does not need IR intervention. I have discussed the urgency of this treatment that is needed as he could progress to brain by as early as tomorrow given his exam and CT findings today. ED to continue to call for transfer to any facility that he is able # Plan Thrombolytic/Intervention: NOT IV Thrombolysis or IA Intervention candidate Thrombolytic Exclusion: > 4.5 hours Intraarterial Exclusion: no large vessel occlusion (LVO) unfavorable imaging/hypodensity Other: consult neurosurgery I have discussed my recommendations with the referring provider Disposition: transfer # [employer] Telemedicine: phone only
--- NOTE | 2021-08-08 20:43 | XRay Report ---
CHEST 1 VIEW 08/08/2021 7:34 PM INDICATION / CLINICAL INFORMATION: SOB. COMPARISON: 08/09/2021 FINDINGS: SUPPORT DEVICES: Stable, satisfactory device positioning. HEART / MEDIASTINUM: No significant abnormality. LUNGS / PLEURA: Diffuse opacities in bilateral lungs right greater than left. No pneumothorax. ADDITIONAL FINDINGS: No significant additional findings. IMPRESSION: 1. Diffuse bilateral pulmonary opacities. Slight improvement in the right lung. Signer Name: Hermes Chung MD Signed: 08/08/2021 8:39 PM Workstation Name: [id number]
[2021-08-08] MEDS ORDERED: cefTRIAXone/NS 1 GM/50 ML 1 GM/50 ML BAG IV ONE (20:44)
[2021-08-08] MEDS ORDERED: dexAMETHasone 4 MG/ML VIAL IV ONE (20:44)
[2021-08-08] MEDS ORDERED: ACETAMINOPHEN 650 MG RECT SUPP PR ONE (20:45)
[2021-08-08] MEDS ORDERED: AZITHROMYCIN/NS 500 MG/250 ML 500 MG/250 ML BAG IV ONE (21:44)
[2021-08-08] MEDS ORDERED: FAMOTIDINE 20 MG/2 ML INJ IV SCH ×2 (22:00)
[2021-08-08] MEDS ORDERED: SENNOSIDES/DOCUSATE SODIUM 8.6/50 MG TAB FEEDTUBE SCH (22:00)
[2021-08-08] MEDS: fentaNYL DRIP Premix 2,000 MCG/100 ML BAG IV SCH (22:29)
[2021-08-08] MEDS ORDERED: MANNITOL 20% 500 ML IV ONE (23:17)
[2021-08-08] MEDS ORDERED: MANNITOL 20% IV ONE (23:30)
[2021-08-09] MEDS ORDERED: SODIUM CHLORIDE 0.9% 1000 ML 1,000 ML IV SCH (00:15)
[2021-08-09] MEDS ORDERED: MORPHINE 4 MG/1 ML INJ IV PRN ×2 (00:15)
[2021-08-09] MEDS ORDERED: MAGNESIUM HYDROXIDE (MOM) ORAL LIQD UDC PO PRN (00:15)
[2021-08-09] MEDS ORDERED: PROMETHAZINE 25 MG RECT SUPP PR PRN (00:15)
[2021-08-09] MEDS ORDERED: MORPHINE 2 MG/1 ML INJ IV PRN ×2 (00:15)
[2021-08-09] MEDS ORDERED: ONDANSETRON 4 MG/2 ML INJ IV PRN ×2 (00:15)
[2021-08-09] MEDS ORDERED: METOCLOPRAMIDE 10 MG TAB PO PRN (00:15)
[2021-08-09] MEDS ORDERED: ACETAMINOPHEN 650 MG RECT SUPP PR PRN ×2 (00:15)
--- NOTE | 2021-08-09 00:32 | History and Physical Report ---
History of Present Illness Date of examination: 08/09/21 Date of admission: 08/09/2021 Chief complaint: Altered Mental status History of present illness: 56-year-old -[place] male with known history of hypertension brought into the emergency room by EMS today for changes in mental status. Patient was found to be unresponsive upon arrival of EMS. However upon arrival in the emergency room patient became more alert and was answering questions by nodding. Patient was said to have had vertigo-like symptoms over the weekend with and was evaluated at [facility] on Saturday and discharged home on meclizine from the emergency room. However since discharge patient has not been his usual self. Patient has been sleeping a lot and only answers questions by nodding. He was said to have rolled off the bed earlier this morning and hitting his head on the floor. He thereafter became unresponsive which prompted to call EMS. During the course of his stay in the emergency room patient became more responsive and his oxygen saturation was said to have dropped to the 80s on room air. He was subsequently placed on nonrebreather with some improvement. Patient was subsequently intubated in the emergency room. Work-up in the emergency room today, chest x-ray reveals diffuse opacities throughout the right lung with low lung volumes, no pneumothorax. CTA of the head shows absence of vascular enhancement in the left inferior cerebellum consistent with probable evolving PICA infarct. 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 CTA of the neck reveals no definite evidence of vascular abnormality, extensive soft tissue emphysema in the neck and mediastinum. CT of the head shows large areas of edema or ischemia suspected in the posterior fossa. The basilar artery and vertebral arteries appear slightly hyperdense. Vertebral basilar insufficiency or thrombosis should be considered. The fourth ventricle is effaced due to mass-effect. Labs significant for hypokalemia of 2.6. Multiple attempts were made to transfer patient to multiple facilities for neuro surgical intervention but all attempts were futile. Neurosurgeon- Dr. Gonsalves recommends that patient be admitted into the intensive care unit in this facility and will be making further attempts to transfer patient in the a.m. Past History Past Medical History: other (Not Obtainable) Past Surgical History: Other (Not obtainable) Social history: other (Not obtainable) Family history: other (Not obtainable) Medications and Allergies Allergies Allergy/AdvReac Type Severity Reaction Status Date / Time No Known Allergies Allergy Unverified 08/08/21 20:00 Active Meds: Active Medications Acetaminophen (Acetaminophen 650 Mg Rect Supp) 650 mg VA Q6H PRN PRN Reason: Pain MILD(1-3)/Fever >100.5/HERNANDEZ Acetaminophen (Acetaminophen 650 Mg Rect Supp) 650 mg VA Q4H PRN PRN Reason: Pain, Mild (1-3) Bisacodyl (Bisacodyl 10 Mg Rect Supp) 10 mg VA QDAY PRN PRN Reason: Constipation Famotidine (Famotidine 20 Mg/2 Ml Inj) 10 mg IV BID LASHAUN Last Admin: 08/08/21 23:14 Dose: 10 mg Hydrophilic Ointment (Lip Therapy Vaseline) 1 applic TP Q2HR PRN PRN Reason: Dry Lips Midazolam HCl 100 mg/ Sodium (Chloride) 100 mls @ 2 mls/hr IV TITR LASHAUN; Protocol Last Titration: 08/08/21 21:00 Dose: 1 mg/hr, 1 mls/hr Fentanyl Citrate (Fentanyl Drip Premix) 2,000 mcg in 100 mls @ 5.5 mls/hr IV TITR LASHAUN; Protocol Last Admin: 08/08/21 22:29 Dose: 1 mcg/kg/hr, 5.5 mls/hr Sodium Chloride (Nacl 0.9% 1000 Ml) 1,000 mls @ 125 mls/hr IV DIRECT LASHAUN Magnesium Hydroxide (Magnesium Hydroxide (Mom) Oral Liqd Udc) 30 ml PO Q4H PRN PRN Reason: Constipation Metoclopramide HCl (Metoclopramide 10 Mg Tab) 10 mg PO Q6H PRN PRN Reason: Nausea And Vomiting Midazolam HCl (Midazolam 2 Mg/2 Ml Inj) 2 mg IV Q10MIN PRN PRN Reason: Sedation Last Admin: 08/08/21 17:28 Dose: 2 mg Morphine Sulfate (Morphine 2 Mg/1 Ml Inj) 2 mg IV Q4H PRN PRN Reason: Pain, Moderate (4-6) Morphine Sulfate (Morphine 4 Mg/1 Ml Inj) 4 mg IV Q4H PRN PRN Reason: Pain , Severe (7-10) Morphine Sulfate (Morphine 2 Mg/1 Ml Inj) 2 mg IV Q4H PRN PRN Reason: Pain, Moderate (4-6) Morphine Sulfate (Morphine 4 Mg/1 Ml Inj) 4 mg IV Q4H PRN PRN Reason: Pain , Severe (7-10) Multi-Ingred Cream/Lotion/Oil/Oint (Mineral Oil/Petrolatum, White Ophth Oint 3.5 Gm) 1 applic OU Q4HR PRN PRN Reason: Dry Eye(s) Ondansetron HCl (Ondansetron 4 Mg/2 Ml Inj) 4 mg IV Q8H PRN PRN Reason: Nausea And Vomiting Ondansetron HCl (Ondansetron 4 Mg/2 Ml Inj) 4 mg IV Q8H PRN PRN Reason: Nausea And Vomiting Promethazine HCl (Promethazine 25 Mg Rect Supp) 25 mg VA Q6H PRN PRN Reason: Nausea And Vomiting Senna/Docusate Sodium (Sennosides/Docusate Sodium 8.6/50 Mg Tab) 1 tab FEEDTUBE BID LASHAUN Last Admin: 08/08/21 23:11 Dose: Not Given Sodium Chloride (Sodium Chloride 0.9% 10 Ml Flush Syringe) 10 ml IV BID LASHAUN Sodium Chloride (Sodium Chloride 0.9% 10 Ml Flush Syringe) 10 ml IV PRN PRN PRN Reason: LINE FLUSH Sodium Chloride (Sodium Chloride 0.9% 10 Ml Flush Syringe) 10 ml INJ PRN PRN PRN Reason: LINE FLUSH Review of Systems ROS unobtainable: due to endotracheal tube Exam - Constitutional Vitals: Temp Pulse Resp BP Pulse Ox 100.9 F H 102 H 20 111/67 96 08/08/21 19:23 08/08/21 23:16 08/08/21 23:16 08/08/21 23:16 08/08/21 23:16 General appearance: Present: other (Intubated and sedated) - EENT Eyes: Present: PERRL, EOM intact. Absent: scleral icterus ENT: hearing intact, clear oral mucosa, dentition normal - Neck Neck: Present: supple, normal ROM - Respiratory Respiratory effort: normal Respiratory: bilateral: diminished - Cardiovascular Rhythm: regular Heart Sounds: Present: S1 & S2. Absent: gallop, systolic murmur, diastolic murmur, rub, click - Extremities Extremities: no ischemia, pulses intact, pulses symmetrical, No edema, normal temperature, normal color, Full ROM Peripheral Pulses: within normal limits - Abdominal General gastrointestinal: Present: soft, non-tender, non-distended, normal bowel sounds. Absent: mass - Integumentary Integumentary: Present: clear, warm, dry. Absent: rash - Musculoskeletal Musculoskeletal: strength equal bilaterally - Psychiatric Psychiatric: cooperative - Neurologic Neurologic: other (Intubated and sedated) HEART Score - HEART Score Troponin: Troponin T 0.019 ng/mL (0.00-0.029) 08/08/21 13:16 Results - Labs CBC & Chem 7: 08/08/21 13:16 08/08/21 13:16 Labs: Abnormal lab results 08/08/21 08/08/21 08/08/21 Range/Units 13:16 13:16 13:16 WBC 11.7 H (4.5-11.0) K/mm3 RBC 6.97 H (3.65-5.03) M/mm3 Hgb 18.9 H (11.8-15.2) gm/dl Hct 58.9 H (35.5-45.6) % MCH 27 L (28-32) pg Lymph % (Auto) 12.6 L (13.4-35.0) % Clinch % (Auto) 10.3 H (0.0-7.3) % Clinch # (Auto) 1.2 H (0.0-0.8) K/mm3 Seg Neutrophils % 77.0 H (40.0-70.0) % Seg Neutrophils # 9.0 H (1.8-7.7) K/mm3 ABG pO2 (80.0-90.0) mm Hg ABG HCO3 (20.0-26.0) mmol/L ABG Base Excess (-2.0-3.0) mmol/L Potassium 2.6 L* (3.6-5.0) mmol/L Chloride 93.2 L (98-107) mmol/L BUN 36 H (9-20) mg/dL Creatinine 2.7 H (0.8-1.3) mg/dL Glucose 129 H (75-100) mg/dL Lactic Acid 3.30 H* (0.7-2.0) mmol/L Magnesium (1.7-2.3) mg/dL Ammonia (25-60) umol/L Total Protein 9.4 H (6.3-8.2) g/dL Urine WBC (Auto) (0.0-6.0) /HPF Salicylates (2.8-20.0) mg/dL Acetaminophen (10.0-30.0) ug/mL 08/08/21 08/08/21 08/08/21 Range/Units 13:16 13:16 13:16 WBC (4.5-11.0) K/mm3 RBC (3.65-5.03) M/mm3 Hgb (11.8-15.2) gm/dl Hct (35.5-45.6) % MCH (28-32) pg Lymph % (Auto) (13.4-35.0) % Clinch % (Auto) (0.0-7.3) % Clinch # (Auto) (0.0-0.8) K/mm3 Seg Neutrophils % (40.0-70.0) % Seg Neutrophils # (1.8-7.7) K/mm3 ABG pO2 (80.0-90.0) mm Hg ABG HCO3 (20.0-26.0) mmol/L ABG Base Excess (-2.0-3.0) mmol/L Potassium (3.6-5.0) mmol/L Chloride (98-107) mmol/L BUN (9-20) mg/dL Creatinine (0.8-1.3) mg/dL Glucose (75-100) mg/dL Lactic Acid (0.7-2.0) mmol/L Magnesium (1.7-2.3) mg/dL Ammonia 24.0 L (25-60) umol/L Total Protein (6.3-8.2) g/dL Urine WBC (Auto) (0.0-6.0) /HPF Salicylates < 0.3 L (2.8-20.0) mg/dL Acetaminophen 5.0 L (10.0-30.0) ug/mL 08/08/21 08/08/21 08/08/21 Range/Units 13:35 13:36 Unknown WBC (4.5-11.0) K/mm3 RBC (3.65-5.03) M/mm3 Hgb (11.8-15.2) gm/dl Hct (35.5-45.6) % MCH (28-32) pg Lymph % (Auto) (13.4-35.0) % Clinch % (Auto) (0.0-7.3) % Clinch # (Auto) (0.0-0.8) K/mm3 Seg Neutrophils % (40.0-70.0) % Seg Neutrophils # (1.8-7.7) K/mm3 ABG pO2 93.7 H (80.0-90.0) mm Hg ABG HCO3 34.0 H (20.0-26.0) mmol/L ABG Base Excess 6.8 H (-2.0-3.0) mmol/L Potassium (3.6-5.0) mmol/L Chloride (98-107) mmol/L BUN (9-20) mg/dL Creatinine (0.8-1.3) mg/dL Glucose (75-100) mg/dL Lactic Acid (0.7-2.0) mmol/L Magnesium 2.40 H (1.7-2.3) mg/dL Ammonia (25-60) umol/L Total Protein (6.3-8.2) g/dL Urine WBC (Auto) 10.0 H (0.0-6.0) /HPF Salicylates (2.8-20.0) mg/dL Acetaminophen (10.0-30.0) ug/mL Assessment and Plan - Patient Problems (1) CVA (cerebral vascular accident) Current Visit: Yes Status: Acute Qualifiers: CVA mechanism: occlusion Precerebral and cerebral artery: cerebellar artery Laterality of affected vessel: unspecified Qualified Code(s): I63.549 - Cer ebral infarction due to unspecified occlusion or stenosis of unspecified cerebellar artery Plan to address problem: Patient admitted into the intensive care unit. Consult placed to neurosurgeon for evaluation and further recommendations. Multiple attempts were made to transfer patient to facility for urgent neurosurgical intervention. However all attempts were futile. Neurosurgeon-Dr. Gonsalves will be following. (2) Acute respiratory failure Current Visit: Yes Status: Acute Qualifiers: Respiratory failure complication: hypoxia Qualified Code(s): J96.01 - Acute respiratory failure with hypoxia Plan to address problem: Possibly secondary to underlying pneumonia. Will continue empiric IV antibiotics. (3) TRICIA (acute kidney injury) Current Visit: Yes Status: Acute Plan to address problem: Will continue patient on IV fluid and monitor BUN and creatinine. Consult placed to nephrology for evaluation. (4) Pneumonia Current Visit: Yes Status: Acute Qualifiers: Pneumonia type: due to unspecified organism Laterality: bilateral Plan to address problem: Patient continued on empiric IV antibiotics. Will await culture results. (5) Hypokalemia Current Visit: Yes Status: Acute Plan to address problem: Potassium will be repleted and will monitor chemistry. (6) Full code status Current Visit: Yes Status: Acute Plan to address problem: Patient is full code.
[2021-08-09 04:19] LABS: ABG Base Excess 2.2 mmol/L (-2.0-3.0); ABG HCO3 27.5 mmol/L (20.0-26.0); ABG Methemoglobin 0.6 % (0.0-1.5); ABG Oxygen Saturation 97.2 % (95.0-99.0); ABG PCO2 45.3 mm Hg; ABG PH 7.402 pH Units (7.350-7.450); ABG PO2 95.1 mm Hg (80.0-90.0)
[2021-08-09] MEDS ORDERED: POTASSIUM CHLORIDE 10 MEQ 10 MEQ/100 ML BAG IV ONE (06:20)
--- NOTE | 2021-08-09 07:20 | Consultation ---
History of Present Illness Consult date: 08/09/21 Requesting physician: AMAIRANI YUSUF Reason for consult: other (Resp failure on MVS) History of present illness: HISTORY PER MEDICAL RECORDS- PATIENT IS INTUBATED ON MVS, ON FENTANYL AND MIDAZOLAM INFUSIONS 56-year-old -Slovenian male presents to the emergency department via EMS from home with complaint of altered mental status. Initial call for EMS was a "sick call" and the patient was relatively unresponsive when they first arrived. Upon arrival to the emergency department the patient was more awake and alert, answering questions by nodding his head, had spontaneous eye opening, and EMS felt it was safe enough for the oral pharyngeal airway to be removed. Initially he was hypertensive in route. He has a known history of hypertension. The patient's told EMS that the patient had some type of fall over the weekend with a head injury and he was evaluated at [facility] on Saturday and discharged home from the emergency department. She told EMS that since that time he has been "like this." While waiting for a room assignment in the emergency department, the patient once again became unresponsive. He was moved into room #24. There was occasional spontaneous eye opening but this was rare. The patient would respond minimally to painful stimuli. Otherwise he was unresponsive with snoring respirations and his oxygen saturation was seen going down to 80% on room air. The patient was placed on a nonrebreather with some mild improvement. However, with a low GCS and his respiratory status, the patient was intubated. Work-up in the emergency room today, chest x-ray reveals diffuse opacities throughout the right lung with low lung volumes, no pneumothorax. CTA of the head shows absence of vascular enhancement in the left inferior cerebellum consistent with probable evolving PICA infarct. 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 CTA of the neck reveals no definite evidence of vascular abnormality, extensive soft tissue emphysema in the neck and mediastinum. CT of the head shows large areas of edema or ischemia suspected in the posterior fossa. The basilar artery and vertebral arteries appear slightly hyperdense. Vertebral basilar insufficiency or thrombosis should be considered. The fourth ventricle is effaced due to mass-effect. Labs significant for hypokalemia of 2.6. Multiple attempts were made to transfer patient to multiple facilities for neuro surgical intervention but all attempts were futile. Neurosurgeon- Dr. Gonsalves recommends that patient be admitted into the intensive care unit in this facility and will be making further attempts to transfer viviane ent in the a.m. A critical care consult was placed Patient seen and examined. Vitals, labs,medications, chart and imaging reviewed. Orally intubated, sedated on Midazolam, on Fentanyl Past History Past Medical History: other (Not Obtainable) Past Surgical History: Other (Not obtainable) Social history: other (Not obtainable) Family history: other (Not obtainable) Medications and Allergies Allergies Allergy/AdvReac Type Severity Reaction Status Date / Time No Known Allergies Allergy Unverified 08/08/21 20:00 Active Meds: Active Medications Acetaminophen (Acetaminophen 650 Mg Rect Supp) 650 mg MO Q6H PRN PRN Reason: Pain MILD(1-3)/Fever >100.5/HERNANDEZ Acetaminophen (Acetaminophen 650 Mg Rect Supp) 650 mg MO Q4H PRN PRN Reason: Pain, Mild (1-3) Bisacodyl (Bisacodyl 10 Mg Rect Supp) 10 mg MO QDAY PRN PRN Reason: Constipation Famotidine (Famotidine 20 Mg/2 Ml Inj) 10 mg IV BID LASHAUN Last Admin: 08/08/21 23:14 Dose: 10 mg Hydrophilic Ointment (Lip Therapy Vaseline) 1 applic TP Q2HR PRN PRN Reason: Dry Lips Midazolam HCl 100 mg/ Sodium (Chloride) 100 mls @ 2 mls/hr IV TITR LASHAUN; Protoc ol Last Titration: 08/08/21 21:00 Dose: 1 mg/hr, 1 mls/hr Fentanyl Citrate (Fentanyl Drip Premix) 2,000 mcg in 100 mls @ 5.5 mls/hr IV TITR LASHAUN; Protocol Last Admin: 08/08/21 22:29 Dose: 1 mcg/kg/hr, 5.5 mls/hr Sodium Chloride (Nacl 0.9% 1000 Ml) 1,000 mls @ 125 mls/hr IV DIRECT LASHAUN Last Admin: 08/09/21 01:05 Dose: 125 mls/hr Ceftriaxone Sodium (Rocephin/Ns 2 Gm/100 Ml) 2 gm in 100 mls @ 200 mls/hr IV Q24H LASHAUN; Protocol Azithromycin (Zithromax/Ns) 500 mg in 250 mls @ 250 mls/hr IV Q24H LASHAUN; Protocol Magnesium Hydroxide (Magnesium Hydroxide (Mom) Oral Liqd Udc) 30 ml PO Q4H PRN PRN Reason: Constipation Metoclopramide HCl (Metoclopramide 10 Mg Tab) 10 mg PO Q6H PRN PRN Reason: Nausea And Vomiting Midazolam HCl (Midazolam 2 Mg/2 Ml Inj) 2 mg IV Q10MIN PRN PRN Reason: Sedation Last Admin: 08/08/21 17:28 Dose: 2 mg Morphine Sulfate (Morphine 2 Mg/1 Ml Inj) 2 mg IV Q4H PRN PRN Reason: Pain, Moderate (4-6) Morphine Sulfate (Morphine 4 Mg/1 Ml Inj) 4 mg IV Q4H PRN PRN Reason: Pain , Severe (7-10) Multi-Ingred Cream/Lotion/Oil/Oint (Mineral Oil/Petrolatum, White Ophth Oint 3.5 Gm) 1 applic OU Q4HR PRN PRN Reason: Dry Eye(s) Ondansetron HCl (Ondansetron 4 Mg/2 Ml Inj) 4 mg IV Q8H PRN PRN Reason: Nausea And Vomiting Promethazine HCl (Promethazine 25 Mg Rect Supp) 25 mg MO Q6H PRN PRN Reason: Nausea And Vomiting Senna/Docusate Sodium (Sennosides/Docusate Sodium 8.6/50 Mg Tab) 1 tab FEEDTUBE BID LASHAUN Last Admin: 08/08/21 23:11 Dose: Not Given Sodium Chloride (Sodium Chloride 0.9% 10 Ml Flush Syringe) 10 ml IV BID [facility] Sodium Chloride (Sodium Chloride 0.9% 10 Ml Flush Syringe) 10 ml IV PRN PRN PRN Reason: LINE FLUSH Review of Systems ROS unobtainable: due to endotracheal tube, due to mental status Physical Examination Vital signs: Vital Signs Pulse BP Pulse Ox 126 H 203/128 90 08/08/21 12:58 08/08/21 12:58 08/08/21 12:58 General appearance: no acute distress Eyes: non-icteric ENT: oropharynx moist, other (orally intubated ETT at 23 cm at the lip) Neck: supple, no lymphadenopathy, no JVD Ascultation: Bilateral: clear Cardiovascular: regular rate and rhythm, other (S1,S2) Gastrointestinal: normoactive bowel sounds, soft, non-tender Integumentary: normal Extremities: no cyanosis, no edema, pink and warm unable to assess (sedated) Results - Laboratory Findings CBC and BMP: 08/08/21 13:16 08/09/21 09:51 ABG ABG pH 7.402 pH Units (7.350-7.450) 08/09/21 03:50 ABG pCO2 45.3 mm Hg 08/09/21 03:50 ABG pO2 95.1 mm Hg (80.0-90.0) H 08/09/21 03:50 ABG O2 Saturation 97.2 % (95.0-99.0) 08/09/21 03:50 PT/INR, D-dimer PT 13.5 Sec. (12.2-14.9) 08/08/21 13:16 INR 0.93 (0.87-1.13) 08/08/21 13:16 Abnormal lab findings: Abnormal Labs 08/08/21 08/08/21 08/08/21 13:16 13:16 13:16 WBC 11.7 H RBC 6.97 H Hgb 18.9 H Hct 58.9 H MCH 27 L Lymph % (Auto) 12.6 L [place] % (Auto) 10.3 H [place] # (Auto) 1.2 H Seg Neutrophils % 77.0 H Seg Neutrophils # 9.0 H ABG pO2 ABG HCO3 ABG Base Excess ABG Hemoglobin Potassium 2.6 L* Chloride 93.2 L BUN 36 H Creatinine 2.7 H Glucose 129 H Lactic Acid 3.30 H* Magnesium Ammonia Total Protein 9.4 H Urine WBC (Auto) Salicylates Acetaminophen 08/08/21 08/08/21 08/08/21 13:16 13:16 13:16 WBC RBC Hgb Hct MCH Lymph % (Auto) [place] % (Auto) [place] # (Auto) Seg Neutrophils % Seg Neutrophils # ABG pO2 ABG HCO3 ABG Base Excess ABG Hemoglobin Potassium Chloride BUN Creatinine Glucose Lactic Acid Magnesium Ammonia 24.0 L Total Protein Urine WBC (Auto) Salicylates < 0.3 L Acetaminophen 5.0 L 08/08/21 08/08/21 08/08/21 13:35 13:36 Unknown WBC RBC Hgb Hct MCH Lymph % (Auto) [place] % (Auto) [place] # (Auto) Seg Neutrophils % Seg Neutrophils # ABG pO2 93.7 H ABG HCO3 34.0 H ABG Base Excess 6.8 H ABG Hemoglobin Potassium Chloride BUN Creatinine Glucose Lactic Acid Magnesium 2.40 H Ammonia Total Protein Urine WBC (Auto) 10.0 H Salicylates Acetaminophen 08/09/21 03:50 WBC RBC Hgb Hct MCH Lymph % (Auto) [place] % (Auto) [place] # (Auto) Seg Neutrophils % Seg Neutrophils # ABG pO2 95.1 H ABG HCO3 27.5 H ABG Base Excess ABG Hemoglobin 13.1 L Potassium Chloride BUN Creatinine Glucose Lactic Acid Magnesium Ammonia Total Protein Urine WBC (Auto) Salicylates Acetaminophen - Diagnostic Findings Chest x-ray: image reviewed (ETT in position, right lung alveolar infiltrates) Assessment and Plan CVA (cerebral vascular accident)-PICA occlusion Acute respiratory failure, possible aspiration pneumonia TRICIA (acute kidney injury) Pneumonia Hypokalemia -Replete potassium, keep the levels>3.5 - VAP bundle addressed, aspiration precautions - continue to titrate supplemental oxygen to keep SpO2 90-92% -Lung protective strategies, - aspiration precautions, HOB 30 % -medical ICP management, Na goals 145-155 -maintain SBP < 160 - continue bronchodilators with pulmonary hygiene per RT - continue accuchecks with glycemic control per SSI (While critically ill target blood glucose of 140-180 mg/dL; avoid hypoglycemia) - avoid nephrotoxins - avoid benzodiazepines, reduce the possibility of delirium - sedation target for RASS 0 to -1 -On Midazolam and Fentanyl - prn analgesia per pain score - Maintenance of sleep-wake cycle, avoid delirium - Stress ulcer prophylaxis - Monitor hemodynamics closely - Seizure precautions - continue other care per attending / other consultants Discussed with neurosurgeon and hospital medicine. Plan is to transfer to tertiary center. CONDITION: CRITICAL PROGNOSIS: GUARDED CODE STATUS: FULL CODE The high probability of a clinically significant, sudden or life-threatening deterioration of the [respiratory,neurologic] system(s) required my full and direct attention, intervention and personal management. The aggregate critical care time was [35] minutes without overlap. Time includes spent on; [x] Data Review and interpretation [x] Patient assessment and monitoring of vital signs [x] Documentation [x] Medication orders and management
--- NOTE | 2021-08-09 08:08 | Consultation ---
History of Present Illness Consult date: 08/09/21 Reason for Consult: change in mentation,left PICA infarct History of present illness: Altered Mental status History of present illness: 56-year-old -Polish male with known history of hypertension brought int o the emergency room by EMS today for changes in mental status. Patient was found to be unresponsive upon arrival of EMS. However upon arrival in the emergency room patient became more alert and was answering questions by nodding. Patient was said to have had vertigo-like symptoms over the weekend with and was evaluated at [facility] on Saturday and discharged home on meclizine from the emergency room. However since discharge patient has not been his usual self. Patient has been sleeping a lot and only answers questions by nodding. He was said to have rolled off the bed earlier this morning and hitting his head on the floor. He thereafter became unresponsive which prompted to call EMS. During the course of his stay in the emergency room patient became more responsive and his oxygen saturation was said to have dropped to the 80s on room air. He was subsequently placed on nonrebreather with some improvement. Patient was subsequently intubated in the emergency room. Work-up in the emergency room today, chest x-ray reveals diffuse opacities throughout the right lung with low lung volumes, no pneumothorax. CTA of the head shows absence of vascular enhancement in the left inferior cerebellum consistent with probable evolving PICA infarct. 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 CTA of the neck reveals no definite evidence of vascular abnormality, extensive soft tissue emphysema in the neck and mediastinum. CT of the head shows large areas of edema or ischemia suspected in the posterior fossa. The basilar artery and vertebral arteries appear slightly hyperdense. Vertebral basilar insufficiency or thrombosis should be considered. The fourth ventricle is effaced due to mass-effect. Labs significant for hypokalemia of 2.6. Multiple attempts were made to transfer patient to multiple facilities for neuro surgical intervention but all attempts were futile. Neurosurgeon- Dr. Gonsalves recommends that patient be admitted into the intensive care unit in this facility and will be making further attempts to transfer patient in the a.m. neurology consulted today pt. is in ER intubated on light sedation of Fentanyl and versid he is unresponsive Past History Past Medical History: other (Not Obtainable) Past Surgical History: Other (Not obtainable) Social history: other (Not obtainable) Family history: other (Not obtainable) Medications and Allergies Allergies Allergy/AdvReac Type Severity Reaction Status Date / Time No Known Allergies Allergy Unverified 08/08/21 20:00 Active Meds: Active Medications Acetaminophen (Acetaminophen 650 Mg Rect Supp) 650 mg MT Q6H PRN PRN Reason: Pain MILD(1-3)/Fever >100.5/HERNANDEZ Acetaminophen (Acetaminophen 650 Mg Rect Supp) 650 mg MT Q4H PRN PRN Reason: Pain, Mild (1-3) Bisacodyl (Bisacodyl 10 Mg Rect Supp) 10 mg MT QDAY PRN PRN Reason: Constipation Famotidine (Famotidine 20 Mg/2 Ml Inj) 10 mg IV BID LASHAUN Last Admin: 08/08/21 23:14 Dose: 10 mg Hydrophilic Ointment (Lip Therapy Vaseline) 1 applic TP Q2HR PRN PRN Reason: Dry Lips Midazolam HCl 100 mg/ Sodium (Chloride) 100 mls @ 2 mls/hr IV TITR LASHAUN; Protoco l Last Titration: 08/08/21 21:00 Dose: 1 mg/hr, 1 mls/hr Fentanyl Citrate (Fentanyl Drip Premix) 2,000 mcg in 100 mls @ 5.5 mls/hr IV TITR LASHAUN; Protocol Last Admin: 08/08/21 22:29 Dose: 1 mcg/kg/hr, 5.5 mls/hr Sodium Chloride (Nacl 0.9% 1000 Ml) 1,000 mls @ 125 mls/hr IV DIRECT LASHAUN Magnesium Hydroxide (Magnesium Hydroxide (Mom) Oral Liqd Udc) 30 ml PO Q4H PRN PRN Reason: Constipation Metoclopramide HCl (Metoclopramide 10 Mg Tab) 10 mg PO Q6H PRN PRN Reason: Nausea And Vomiting Midazolam HCl (Midazolam 2 Mg/2 Ml Inj) 2 mg IV Q10MIN PRN PRN Reason: Sedation Last Admin: 08/08/21 17:28 Dose: 2 mg Morphine Sulfate (Morphine 2 Mg/1 Ml Inj) 2 mg IV Q4H PRN PRN Reason: Pain, Moderate (4-6) Morphine Sulfate (Morphine 4 Mg/1 Ml Inj) 4 mg IV Q4H PRN PRN Reason: Pain , Severe (7-10) Morphine Sulfate (Morphine 2 Mg/1 Ml Inj) 2 mg IV Q4H PRN PRN Reason: Pain, Moderate (4-6) Morphine Sulfate (Morphine 4 Mg/1 Ml Inj) 4 mg IV Q4H PRN PRN Reason: Pain , Severe (7-10) Multi-Ingred Cream/Lotion/Oil/Oint (Mineral Oil/Petrolatum, White Ophth Oint 3.5 Gm) 1 applic OU Q4HR PRN PRN Reason: Dry Eye(s) Ondansetron HCl (Ondansetron 4 Mg/2 Ml Inj) 4 mg IV Q8H PRN PRN Reason: Nausea And Vomiting Ondansetron HCl (Ondansetron 4 Mg/2 Ml Inj) 4 mg IV Q8H PRN PRN Reason: Nausea And Vomiting Promethazine HCl (Promethazine 25 Mg Rect Supp) 25 mg MT Q6H PRN PRN Reason: Nausea And Vomiting Senna/Docusate Sodium (Sennosides/Docusate Sodium 8.6/50 Mg Tab) 1 tab FEEDTUBE BID [facility] Last Admin: 08/08/21 23:11 Dose: Not Given Sodium Chloride (Sodium Chloride 0.9% 10 Ml Flush Syringe) 10 ml IV BID [facility] Sodium Chloride (Sodium Chloride 0.9% 10 Ml Flush Syringe) 10 ml IV PRN PRN PRN Reason: LINE FLUSH Sodium Chloride (Sodium Chloride 0.9% 10 Ml Flush Syringe) 10 ml INJ PRN PRN PRN Reason: LINE FLUSH Review of Systems ROS unobtainable: due to endotracheal tube Past History Past Medical History: other (Not Obtainable) Past Surgical History: Other (Not obtainable) Social history: other (Not obtainable) Family history: other (Not obtainable) Medications and Allergies Allergies Allergy/AdvReac Type Severity Reaction Status Date / Time No Known Allergies Allergy Unverified 08/08/21 20:00 Active Meds: Active Medications Acetaminophen (Acetaminophen 650 Mg Rect Supp) 650 mg MT Q6H PRN PRN Reason: Pain MILD(1-3)/Fever >100.5/HERNANDEZ Acetaminophen (Acetaminophen 650 Mg Rect Supp) 650 mg MT Q4H PRN PRN Reason: Pain, Mild (1-3) Bisacodyl (Bisacodyl 10 Mg Rect Supp) 10 mg MT QDAY PRN PRN Reason: Constipation Famotidine (Famotidine 20 Mg/2 Ml Inj) 10 mg IV BID [facility] Last Admin: 08/08/21 23:14 Dose: 10 mg Hydrophilic Ointment (Lip Therapy Vaseline) 1 applic TP Q2HR PRN PRN Reason: Dry Lips Midazolam HCl 100 mg/ Sodium (Chloride) 100 mls @ 2 mls/hr IV TITR LASHAUN; Protocol Last Titration: 08/08/21 21:00 Dose: 1 mg/hr, 1 mls/hr Fentanyl Citrate (Fentanyl Drip Premix) 2,000 mcg in 100 mls @ 5.5 mls/hr IV TITR LASHAUN; Protocol Last Admin: 08/08/21 22:29 Dose: 1 mcg/kg/hr, 5.5 mls/hr Sodium Chloride (Nacl 0.9% 1000 Ml) 1,000 mls @ 125 mls/hr IV DIRECT LASHAUN Last Admin: 08/09/21 01:05 Dose: 125 mls/hr Ceftriaxone Sodium (Rocephin/Ns 2 Gm/100 Ml) 2 gm in 100 mls @ 200 mls/hr IV Q24H LASHAUN; Protocol Azithromycin (Zithromax/Ns) 500 mg in 250 mls @ 250 mls/hr IV Q24H LASHAUN; Protocol Magnesium Hydroxide (Magnesium Hydroxide (Mom) Oral Liqd Udc) 30 ml PO Q4H PRN PRN Reason: Constipation Metoclopramide HCl (Metoclopramide 10 Mg Tab) 10 mg PO Q6H PRN PRN Reason: Nausea And Vomiting Midazolam HCl (Midazolam 2 Mg/2 Ml Inj) 2 mg IV Q10MIN PRN PRN Reason: Sedation Last Admin: 08/08/21 17:28 Dose: 2 mg Morphine Sulfate (Morphine 2 Mg/1 Ml Inj) 2 mg IV Q4H PRN PRN Reason: Pain, Moderate (4-6) Morphine Sulfate (Morphine 4 Mg/1 Ml Inj) 4 mg IV Q4H PRN PRN Reason: Pain , Severe (7-10) Multi-Ingred Cream/Lotion/Oil/Oint (Mineral Oil/Petrolatum, White Ophth Oint 3.5 Gm) 1 applic OU Q4HR PRN PRN Reason: Dry Eye(s) Ondansetron HCl (Ondansetron 4 Mg/2 Ml Inj) 4 mg IV Q8H PRN PRN Reason: Nausea And Vomiting Promethazine HCl (Promethazine 25 Mg Rect Supp) 25 mg MT Q6H PRN PRN Reason: Nausea And Vomiting Senna/Docusate Sodium (Sennosides/Docusate Sodium 8.6/50 Mg Tab) 1 tab FEEDTUBE BID LASHAUN Last Admin: 08/08/21 23:11 Dose: Not Given Sodium Chloride (Sodium Chloride 0.9% 10 Ml Flush Syringe) 10 ml IV BID [facility] Sodium Chloride (Sodium Chloride 0.9% 10 Ml Flush Syringe) 10 ml IV PRN PRN PRN Reason: LINE FLUSH Physical Examination - Vital Signs Vital Signs: Vital Signs Pulse BP Pulse Ox 126 H 203/128 90 08/08/21 12:58 08/08/21 12:58 08/08/21 12:58 - Constitutional General appearance: comfortable - EENT EENT: Present: PERRL, mucous membranes moist, other (pupils reactive constriced bilateral, EOM is limited , corneal intact gag is suppressed ,) - Respiratory Respiratory: Present: lungs clear, rhonchi - Cardiovascular Cardiovascular: Present: regular rate, normal S1, normal S2 Extremities: Present: no peripheral edema bilatateraly, no clubbing, cyanosis - Gastrointestinal Gastrointestinal: Present: normoactive bowel sounds - Integumentary Integumentary: Present: normal - Neurologic Speech examination: other (intubated and sedated) Detailed motor examination: other (no movment to sternal rub in both upper and lower ) Results - Laboratory Findings CBC and BMP: 08/08/21 13:16 08/08/21 13:16 Abnormal Lab Findings: Abnormal Labs 08/08/21 08/08/21 08/08/21 13:16 13:16 13:16 WBC 11.7 H RBC 6.97 H Hgb 18.9 H Hct 58.9 H MCH 27 L Lymph % (Auto) 12.6 L [place] % (Auto) 10.3 H [place] # (Auto) 1.2 H Seg Neutrophils % 77.0 H Seg Neutrophils # 9.0 H ABG pO2 ABG HCO3 ABG Base Excess ABG Hemoglobin Potassium 2.6 L* Chloride 93.2 L BUN 36 H Creatinine 2.7 H Glucose 129 H Lactic Acid 3.30 H* Magnesium Ammonia Total Protein 9.4 H Urine WBC (Auto) Salicylates Acetaminophen 08/08/21 08/08/21 08/08/21 13:16 13:16 13:16 WBC RBC Hgb Hct MCH Lymph % (Auto) [place] % (Auto) [place] # (Auto) Seg Neutrophils % Seg Neutrophils # ABG pO2 ABG HCO3 ABG Base Excess ABG Hemoglobin Potassium Chloride BUN Creatinine Glucose Lactic Acid Magnesium Ammonia 24.0 L Total Protein Urine WBC (Auto) Salicylates < 0.3 L Acetaminophen 5.0 L 08/08/21 08/08/21 08/08/21 13:35 13:36 Unknown WBC RBC Hgb Hct MCH Lymph % (Auto) [place] % (Auto) [place] # (Auto) Seg Neutrophils % Seg Neutrophils # ABG pO2 93.7 H ABG HCO3 34.0 H ABG Base Excess 6.8 H ABG Hemoglobin Potassium Chloride BUN Creatinine Glucose Lactic Acid Magnesium 2.40 H Ammonia Total Protein Urine WBC (Auto) 10.0 H Salicylates Acetaminophen 08/09/21 03:50 WBC RBC Hgb Hct MCH Lymph % (Auto) [place] % (Auto) [place] # (Auto) Seg Neutrophils % Seg Neutrophils # ABG pO2 95.1 H ABG HCO3 27.5 H ABG Base Excess ABG Hemoglobin 13.1 L Potassium Chloride BUN Creatinine Glucose Lactic Acid Magnesium Ammonia Total Protein Urine WBC (Auto) Salicylates Acetaminophen Assessment and Plan Assessment and Plan 56-year-old -Polish male with known history of hypertension brought into the emergency room by EMS today for changes in mental status. Patient was found to be unresponsive upon arrival of EMS. However upon arrival in the emergency room patient became more alert and was answering questions by nodding. Patient was said to have had vertigo-like symptoms over the weekend with and was evaluated at [facility] on Saturday and discharged home on meclizine from the emergen today he is with change mentation admitted for further work up - Patient Problems # CVA (cerebral vascular accident) -he is intubated and sedated not follow command -CT brain is remarkable for posterior fossa edema -CTA brain and neck -- is remarkable for edema left PICA distribution with obliteration of 4th ventricle no hemorrhage, no sign of hydrocephaly , Cerebral infarction due to unspecified occlusion of left PICA -Patient admitted into the intensive care unit. - neurosurgeon evaluation - suggest ASA 300 mg rectal daily -liptor when possible po -LDL -Echo -MRI brain when possible -consider hypertonic saline for X2-3 days and maintain respiratory alkalosis -repeat CT brain am -prognosis is quarded # Acute respiratory failure -Possibly secondary to underlying pneumonia. Will continue empiric IV antibiotics. # TRICIA (acute kidney injury) -Will continue patient on IV fluid and monitor BUN and creatinine. Consult placed to nephrology for evaluation. # Pneumonia Patient continued on empiric IV antibiotics. Will await culture results. COVID -19 is pending # Hypokalemia -Potassium will be repleted and will monitor chemistry. # Full code status -Patient is full code.
[2021-08-09 10:40] LABS: BUN/Creatinine Ratio TNR; Blood Urea Nitrogen TNR mg/dL (9-20); Calcium TNR mg/dL (8.4-10.2)
[2021-08-09 10:41] LABS: Alanine Aminotransferase TNR units/L (7-56); Albumin TNR g/dL (3.9-5); Hemolysis Index TNR
--- NOTE | 2021-08-09 10:48 | Cat Scan Report ---
CT head/brain wo con INDICATION / CLINICAL INFORMATION: 56 years Male; cerebral edema, evolving cva. TECHNIQUE: Routine CT head without contrast. All CT scans at this location are performed using CT dos e reduction for ALARA by means of automated exposure control. COMPARISON: The study is compared with the earlier CT head of 08/08/2021. FINDINGS: BRAIN / INTRACRANIAL CONTENTS: The motion degrades the image quality. However, there again appear to be significant edematous changes involving the left cerebellum and upper vermis with apparent interva l progression from 08/08/2021 most consistent with evolving infarct. There is again significant mass e ffect with effacement of the fourth ventricle as well as the basal cisterns, again greater on the lef t. There is notable a deformity of the left posterior angelica. There is no clear CT evidence of interval developing acute intracranial hemorrhage. The relative incr eased attenuation within the vascular structures appears unchanged. There are persistent foci of decr eased attenuation involving the right frontal and parietal subcortical regions which are nonspecific though may reflect microvascular angiopathy of indeterminate age. The findings appear to correlate wi th the previous exam. ORBITS: There is developing prominence of the superior pulmonary veins, greater on the left. Otherwis e, the orbits are unremarkable. SINUSES / MASTOIDS: No significant abnormality in the visualized paranasal sinuses or mastoid air amaya ls. CRANIOCERVICAL JUNCTION: No significant abnormality. ADDITIONAL FINDINGS: None. IMPRESSION: 1. There again appear to be significant edematous changes involving the cerebellum, particularly on t he left with findings indicative of evolving infarct with significant mass effect as a detailed above . 2. 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 3. The study is limited by motion. However, there is no clear CT evidence of hemorrhagic transformati on on the current exam. Signer Name: Rakesh Burk MD Signed: 08/09/2021 10:44 AM Workstation Name: [id number]
--- NOTE | 2021-08-09 10:52 | Consultation ---
History of Present Illness Consult date: 08/09/21 Requesting physician: RENETTA TAYLOR Reason for Consult: Altered mental status History of present illness: Hector Giles is a 56 y/o M w/ history of hypertension. He presented to [facility] on yesterday for evaluation of altered mental status. The patient is currently intubated and sedated, unable to provide historical information. I reviewed his chart. Per report, he had a fall several days ago. He was evaluated at [facility] and discharged. He has reportedly had symptoms of dizziness and balance instability for the past few days. Upon arrival to this facility, he was verbal and following commands. He subsequently had a decline in his mental status, which prompted intubation. CT head revealed posterior fossa edema with 4th ventricular effacement. Repeat CT head this morning grossly stable. CTA revealed left PICA occlusion. NSGY consulted for further evaluation. Past History Past Medical History: other (Not Obtainable) Past Surgical History: Other (Not obtainable) Social history: other (Not obtainable) Family history: other (Not obtainable) Medications and Allergies Allergies Allergy/AdvReac Type Severity Reaction Status Date / Time No Known Allergies Allergy Unverified 08/08/21 20:00 Active Meds: Active Medications Acetaminophen (Acetaminophen 650 Mg Rect Supp) 650 mg HI Q6H PRN PRN Reason: Pain MILD(1-3)/Fever >100.5/HERNANDEZ Acetaminophen (Acetaminophen 650 Mg Rect Supp) 650 mg HI Q4H PRN PRN Reason: Pain, Mild (1-3) Bisacodyl (Bisacodyl 10 Mg Rect Supp) 10 mg HI QDAY PRN PRN Reason: Constipation Famotidine (Famotidine 20 Mg/2 Ml Inj) 10 mg IV BID LASHAUN Last Admin: 08/08/21 23:14 Dose: 10 mg Hydrophilic Ointment (Lip Therapy Vaseline) 1 applic TP Q2HR PRN PRN Reason: Dry Lips Midazolam HCl 100 mg/ Sodium (Chloride) 100 mls @ 2 mls/hr IV TITR LASHAUN; Protocol Last Titration: 08/08/21 21:00 Dose: 1 mg/hr, 1 mls/hr Fentanyl Citrate (Fentanyl Drip Premix) 2,000 mcg in 100 mls @ 5.5 mls/hr IV TITR LASHAUN; Protocol Last Admin: 08/08/21 22:29 Dose: 1 mcg/kg/hr, 5.5 mls/hr Sodium Chloride (Nacl 0.9% 1000 Ml) 1,000 mls @ 125 mls/hr IV DIRECT LASHAUN Last Admin: 08/09/21 01:05 Dose: 125 mls/hr Ceftriaxone Sodium (Rocephin/Ns 2 Gm/100 Ml) 2 gm in 100 mls @ 200 mls/hr IV Q24H LASHAUN; Protocol Azithromycin (Zithromax/Ns) 500 mg in 250 mls @ 250 mls/hr IV Q24H LASHAUN; Protocol Magnesium Hydroxide (Magnesium Hydroxide (Mom) Oral Liqd Udc) 30 ml PO Q4H PRN PRN Reason: Constipation Metoclopramide HCl (Metoclopramide 10 Mg Tab) 10 mg PO Q6H PRN PRN Reason: Nausea And Vomiting Midazolam HCl (Midazolam 2 Mg/2 Ml Inj) 2 mg IV Q10MIN PRN PRN Reason: Sedation Last Admin: 08/08/21 17:28 Dose: 2 mg Multi-Ingred Cream/Lotion/Oil/Oint (Mineral Oil/Petrolatum, White Ophth Oint 3.5 Gm) 1 applic OU Q4HR PRN PRN Reason: Dry Eye(s) Ondansetron HCl (Ondansetron 4 Mg/2 Ml Inj) 4 mg IV Q8H PRN PRN Reason: Nausea And Vomiting Promethazine HCl (Promethazine 25 Mg Rect Supp) 25 mg HI Q6H PRN PRN Reason: Nausea And Vomiting Senna/Docusate Sodium (Sennosides/Docusate Sodium 8.6/50 Mg Tab) [address] [facility] Last Admin: 08/08/21 23:11 Dose: Not Given Sodium Chloride (Sodium Chloride 0.9% 10 Ml Flush Syringe) [address] [facility] Sodium Chloride (Sodium Chloride 0.9% 10 Ml Flush Syringe) 10 ml IV PRN PRN PRN Reason: LINE FLUSH Review of Systems All systems: negative (what is specified in HPI) Physical Examination - Vital Signs Vital Signs: Vital Signs Pulse BP Pulse Ox 126 H 203/128 90 08/08/21 12:58 08/08/21 12:58 08/08/21 12:58 - Physical Exam Narrative exam: seen and examined no acute distress intubated sedated on versed opens eyes to stim pupils 3-4 mm, reactive +corneals b/l +cough/gag moves LLE to stim does not follow commands Results - Laboratory Findings CBC and BMP: 08/08/21 13:16 08/09/21 09:51 Abnormal Lab Findings: Abnormal Labs 08/08/21 08/08/21 08/08/21 13:16 13:16 13:16 WBC 11.7 H RBC 6.97 H Hgb 18.9 H Hct 58.9 H MCH 27 L Lymph % (Auto) 12.6 L [place] % (Auto) 10.3 H [place] # (Auto) 1.2 H Seg Neutrophils % 77.0 H Seg Neutrophils # 9.0 H ABG pO2 ABG HCO3 ABG Base Excess ABG Hemoglobin Potassium 2.6 L* Chloride 93.2 L BUN 36 H Creatinine 2.7 H Glucose 129 H Lactic Acid 3.30 H* Magnesium Ammonia Total Protein 9.4 H Albumin Urine WBC (Auto) Salicylates Acetaminophen 08/08/21 08/08/21 08/08/21 13:16 13:16 13:16 WBC RBC Hgb Hct MCH Lymph % (Auto) [place] % (Auto) [place] # (Auto) Seg Neutrophils % Seg Neutrophils # ABG pO2 ABG HCO3 ABG Base Excess ABG Hemoglobin Potassium Chloride BUN Creatinine Glucose Lactic Acid Magnesium Ammonia 24.0 L Total Protein Albumin Urine WBC (Auto) Salicylates < 0.3 L Acetaminophen 5.0 L 08/08/21 08/08/21 08/08/21 13:35 13:36 Unknown WBC RBC Hgb Hct MCH Lymph % (Auto) [place] % (Auto) [place] # (Auto) Seg Neutrophils % Seg Neutrophils # ABG pO2 93.7 H ABG HCO3 34.0 H ABG Base Excess 6.8 H ABG Hemoglobin Potassium Chloride BUN Creatinine Glucose Lactic Acid Magnesium 2.40 H Ammonia Total Protein Albumin Urine WBC (Auto) 10.0 H Salicylates Acetaminophen 08/09/21 08/09/21 03:50 09:51 WBC RBC Hgb Hct MCH Lymph % (Auto) [place] % (Auto) [place] # (Auto) Seg Neutrophils % Seg Neutrophils # ABG pO2 95.1 H ABG HCO3 27.5 H ABG Base Excess ABG Hemoglobin 13.1 L Potassium Chloride 97.8 L BUN 38 H Creatinine 2.6 H Glucose 73 L Lactic Acid Magnesium Ammonia Total Protein Albumin 1.6 L Urine WBC (Auto) Salicylates Acetaminophen Assessment and Plan Hector Giles is a 56 y/o M w/ posterior fossa edema, concerning for infarct vs underlying mass -recommend immediate transfer to tertiary care facility for further evaluation and treatment -please obtain STAT MRI brain without contrast to further evaluate the etiology of his posterior fossa edema -COVID test STAT -recommend medical ICP management, Na goals 145-155, start mannitol therapy -q1h neuro checks -maintain SBP < 160 -please notify if questions/concerns
--- NOTE | 2021-08-09 11:08 | Discharge Summary ---
Providers - Providers Date of Admission: 08/09/21 00:18 Date of discharge: 08/09/21 Attending physician: ENRIQUE ROSA MD 08/08/21 12:42 Consult to Dietitian/Nutrition [CONS] Routine Physician Instructions: Reason For Exam: Reason for Consult: Evaluate nutritional intake 08/08/21 23:12 Consult to Physician [CONS] Routine Comment: Dr. Reyes spoke with Dr. Cash @ [phone] Consulting Provider: HILLARY CASH II Physician Instructions: Reason For Exam: Cerebellar Artery Occlusion 08/08/21 23:16 Consult to Physician [CONS] Routine Comment: Consulting Provider: DEV ZIMMERMAN Physician Instructions: Reason For Exam: ICU Management 08/09/21 00:18 Occupational Therapy Evaluate and Treat [CONS] Routine Comment: Reason For Exam: Neuro deficits Physical Therapy Evaluation and Treat [CONS] Routine Comment: Reason For Exam: Neuro deficits 08/09/21 06:12 Consult to Physician [CONS] Routine Comment: Consulting Provider: LIONEL HERRING Physician Instructions: Reason For Exam: CVA Consult to Physician [CONS] Routine Comment: Consulting Provider: SANA PURVIS Physician Instructions: Reason For Exam: TRICIA Primary care physician: SWAGER OPERATOR Hospitalization Reason for admission: unresponsiveness Condition: Critical Hospital course: History of present illness: 56-year-old -[place]in[place] male with known history of hypertension brought into the emergency room by EMS today for changes in mental status. Patient was found to be unresponsive upon arrival of EMS. However upon arrival in the emergency room patient became more alert and was answering questions by nodding. Patient was said to have had vertigo-like symptoms over the weekend with and was evaluated at [facility] on Saturday and discharged home on meclizine from the emergency room. However since discharge patient has not been his usual self. Patient has been sleeping a lot and only answers questions by nodding. He was said to have rolled off the bed earlier this morning and hitting his head on the floor. He thereafter became unresponsive which prompted to call EMS. During the course of his stay in the emergency room patient became more responsive and his oxygen saturation was said to have dropped to the 80s on room air. He was subsequently placed on nonrebreather with some improvement. Patient was subsequently intubated in the emergency room. Work-up in the emergency room today, chest x-ray reveals diffuse opacities throughout the right lung with low lung volumes, no pneumothorax. CTA of the head shows absence of vascular enhancement in the left inferior cerebellum consistent with probable evolving PICA infarct. 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 CTA of the neck reveals no definite evidence of vascular abnormality, extensive soft tissue emphysema in the neck and mediastinum. CT of the head shows large areas of edema or ischemia suspected in the posterior fossa. The basilar artery and vertebral arteries appear slightly hyperdense. Vertebral basilar insufficiency or thrombosis should be considered. The fourth ventricle is effaced due to mass-effect. Labs significant for hypokalemia of 2.6. Multiple attempts were made to transfer patient to multiple facilities for neuro surgical intervention but all attempts were futile. Neurosurgeon- Dr. Cash recommends that patient be admitted into the intensive care unit in this facility and will be making further attempts to transfer patient in the a.m. Hospital Course: Patient needed immediate transfer to [place] for neuroICU care. Patient signed out to Dr. Hernandez. Air lifted to facility. Disposition: ADMITTED INPATIENT Final Discharge Diagnosis (Prints w/discharge instructions): acute PICA CVA Time spent for discharge: 120 Core Measure Documentation - Palliative Care Palliative Care/ Comfort Measures: Not Applicable - Core Measures Any of the following diagnoses?: stroke - Stroke Discharge Requirements Statin for LDL = or >70 mg/dl on DC: No Reason for no statin on DC: Not Indicated Anticoag for atrial fib/atrial flutter: No Reason for no anticoag for AF/F on DC: Not Indicated Antithrombotic for ischemic stroke: No Reason for no antithrombotic on DC: Not Indicated Exam - Physical Exam Narrative exam: seen and examined no acute distress intubated sedated on versed opens eyes to stim pupils 3-4 mm, reactive +corneals b/l +cough/gag moves LLE to stim does not follow commands - Constitutional Vitals: Temp Pulse Resp BP Pulse Ox 98.5 F 64 21 140/95 97 08/09/21 11:02 08/09/21 11:02 08/09/21 11:02 08/09/21 11:02 08/09/21 11:02 Plan Follow up with: PRIMARY MD DIMITRY [Primary Care Provider] - 7 Days
[2021-08-09 11:39] VITALS: BP 144/85
[2021-08-09] MEDS: MIDAZOLAM 100 MG in SODIUM CHLORIDE 0.9% 80 ML IV SCH (12:00)
[2021-08-09] MEDS: fentaNYL DRIP Premix 2,000 MCG/100 ML BAG IV SCH (12:01)
--- NOTE | 2021-08-09 13:07 | Vascular Lab Report ---
DUPLEX DOPPLER ULTRASOUND CAROTID, BILATERAL INDICATION / CLINICAL INFORMATION: stroke. COMPARISON: CTA neck 08/08/2021. FINDINGS: RIGHT CAROTID: No significant atherosclerotic plaque. - PLAQUE ESTIMATE (%): < 50% - CCA velocity: 69 cm/sec. - ICA peak systolic velocity: 90 cm/sec. - ICA/CCA PSV Ratio: Less than 2. Right Vertebral Artery: Antegrade flow. LEFT CAROTID: No significant atherosclerotic plaque. - PLAQUE ESTIMATE (%): < 50% - CCA velocity: 58 cm/sec. - ICA peak systolic velocity: 73 cm/sec. - ICA/CCA PSV Ratio: Less than 2. Left Vertebral Artery: Antegrade flow. IMPRESSION: 1. Right Internal Carotid Artery: Normal. No stenosis. 2. Left Internal Carotid Artery: Normal. No stenosis. Velocity criteria are extrapolated from diameter data as defined by the Society of Radiologists in [facility] Consensus Conference, Radiology 2003; 229;340-346. NO STENOSIS (NORMAL) - Plaque = none; ICA PSV < 125 cm/sec; ICA/CCA PSV Ratio < 2.0 <50% STENOSIS - Plaque < 50%; ICA PSV < 125 cm/sec; ICA/CCA PSV Ratio < 2.0 50-69% STENOSIS - Plaque > 50%; ICA PSV = 125-230 cm/sec; ICA/CCA PSV Ratio = 2.0-4.0 >70% BUT <100% STENOSIS - Plaque > 50%; ICA PSV > 230 cm/sec; ICA/CCA PSV Ratio > 4.0 NEAR OCCLUSION - Plaque = visible lumen; ICA PSV = high/low/none; ICA/CCA PSV Ratio = variable TOTAL OCCLUSION - Plaque = no lumen; ICA PSV = none; ICA/CCA PSV Ratio = N/A Scribed by: Lis Alvarado RDMS, RVT Scribed: 08/09/2021 10:58 AM I have reviewed the images, agree with this report, and edited this report as needed. Signer Name: Valentin Bee MD Signed: 08/09/2021 1:02 PM Workstation Name: [id number]
[2021-08-09] MEDS ORDERED: cefTRIAXone/NS 2 GM/100 ML 2 GM/100 ML BAG IV SCH (21:00)
[2021-08-09] MEDS ORDERED: AZITHROMYCIN/NS 500 MG/250 ML 500 MG/250 ML BAG IV SCH (22:00)
== END 2021-08-09 12:23 | disposition admitted as inpatient to this hospital (09) ==
LOC: ED 10:38 → UNDOADMIN 08-09 00:18 → CC1 08-09 00:18 → ED 08-09 12:23
DX: N17.9 Acute kidney failure, unspecified (principal); J18.9 Pneumonia, unspecified organism; I63.9 Cerebral infarction, unspecified; E87.6 Hypokalemia; J96.01 Acute respiratory failure with hypoxia; Z20.822 Contact with and (suspected) exposure to COVID-19
CPT/HCPCS: 31500; 36415; 70450; 70496; 70498; 71045; 80053; 80307; 81001; 82140; 82803; 83735; 83880; 84443; 84484; 85025; 85610; 85730; 86403; 87040; 87070; 87076; 87086; 87186; 87205; 93005; 93880; 96365; 96366; 96367; 96375; 99291; 99292; J0456; J0696; J1100; J2150; J2250; J3010; J3480; J3490; J7030; Q9967; U0003; 80320; 94002; 94003; Q0162; G0480